=== PATIENT | male | born 1950 | race Caucasian/White ===

== ENCOUNTER 2016-10-13 10:16 | Inpatient (IN) | payer MEDICARE, OTHER ==
[2016-10-13 11:22] LABS: Hematocrit 35 % (42-52); Hemoglobin 11.2 g/dl (14.0-18.0); Mean Corpuscular HGB Conc 32 g/dl (31-36); Mean Corpuscular Hemoglobin 30 pg (27-31); Mean Corpuscular Volume 92 fL (80-94); Mean Platelet Volume 10 um3 (7.4-10.4); Red Blood Count 3.75 10^6/ul (4.0-5.4); Red Cell Distribution Width 15 % (10.5-15); White Blood Count 12.5 10^3/ul (3.5-10.8)
--- NOTE | 2016-10-13 11:27 | RAD ---
HISTORY: Shortness of breath COMPARISONS: August 31, 2015 VIEWS:1: Single frontal portable view of the chest at 10:48 AM FINDINGS: LINES AND TUBES: A right-sided chest port is noted with the tip overlying the cavoatrial junction CARDIOMEDIASTINAL SILHOUETTE: The cardiomediastinal silhouette is normal for portable technique. PLEURA: The costophrenic angles are sharp. No pleural abnormalities are noted. LUNG PARENCHYMA: The lungs are clear. ABDOMEN: The upper abdomen is clear. There is no subphrenic gas. BONES AND SOFT TISSUES: No bone or soft tissue abnormalities are noted. IMPRESSION: NO ACTIVE CARDIOPULMONARY DISEASE.
[2016-10-13 11:38] LABS: Albumin 3.8 g/dL (3.2-5.2); BUN/Creatinine Ratio 11.5 (8-20); Calcium 9.1 mg/dL (8.6-10.3); EGFR African American 14.2 (>60); EGFR Non-African American 11.1 (>60); Globulin 2.8 g/dL (2-4); Total Bilirubin 1.1 mg/dL (0.2-1.0); Total Protein 6.6 g/dL (6.4-8.9)
[2016-10-13 11:40] LABS: Troponin I 0.01 ng/mL (<0.04)
[2016-10-13] MEDS ORDERED: NS 0.9% 1000 ML* 2,000 ML IV ONE (11:58)
[2016-10-13] MEDS ORDERED: LORazepam INJ* 2 MG/ML 1 ML VIAL IV PUSH ONE (12:01)
[2016-10-13] MEDS ORDERED: Sodium Polystyrene ORAL.SOL* 15 GM/60 ML BTL PO ONE ×2 (12:24→13:58)
--- NOTE | 2016-10-13 12:43 | ADMNOTE ---
Subjective Date of Service: 10/13/16 Interval History: ADMISSION HISTORY AND PHYSICAL EXAM: Allergies Allergy/AdvReac Type Severity Reaction Status Date / Time Colchicine Allergy Mild Rash Verified 10/13/16 10:39 Penicillin G Allergy Mild Rash Verified 10/13/16 10:39 Home Medications Medication Instructions Recorded Confirmed Type Allopurinol 100 mg PO DAILY 11/19/12 10/13/16 History Metoprolol Succinate [Metoprolol 100 mg PO DAILY 11/19/12 10/13/16 History Succinate ER] Sertraline HCl 75 mg PO DAILY 11/19/12 10/13/16 History Tamsulosin HCl [Flomax] 0.4 mg PO BID 11/19/12 10/13/16 History Atorvastatin* [Lipitor 20 MG*] 20 mg PO DAILY 08/16/15 10/13/16 History Esomeprazole(NF) [Nexium(NF)] 40 mg PO BID 08/16/15 10/13/16 History Losartan TAB* [Cozaar TAB*] 100 mg PO DAILY 08/16/15 10/13/16 History Metformin ER (NF) 500 mg PO BEDTIME 08/16/15 10/13/16 History amLODIPine TAB* [Norvasc 5 mg TAB*] 5 mg PO DAILY 08/16/15 10/13/16 History traZODone TAB* [Desyrel TAB*] 50 mg PO BEDTIME PRN 08/16/15 10/13/16 History Ondansetron TAB* [Zofran Tab*] 4 mg PO Q6H PRN #30 tab 08/18/15 10/13/16 Rx Aspirin [Aspirin Adult Low Dose] 81 mg PO DAILY 08/30/15 10/13/16 History Iron-Vitamin C 65/125(Nf) 1 tab PO BEDTIME 08/30/15 10/13/16 History [Vitron-C (NF)] Multivitamins/Minerals TAB* [Thera 1 tab PO DAILY 08/30/15 10/13/16 History M Plus TAB*] Prochlorperazine TAB* [Compazine 5 mg PO BID 10/05/15 10/13/16 History Tab*] Zolpidem CR (NF) [Ambien CR (NF)] 6.25 mg PO BEDTIME 11/20/15 10/13/16 History Pregabalin CAP(*) [Lyrica CAP(*)] 50 mg PO DAILY 10/13/16 10/13/16 History Tylenol TAB* 1,000 mg PO BID 10/13/16 10/13/16 History HPI: The patient was in his usual state of health until about 4 days ago when he started getting SOB. It got progressively worse. No cough, chest pain, light- headedness.DIminished appetite. He returned from a trip to [facility] on 09/25/16. Family History: Findings - non-contributory Social History: Findings - Smoked as a young man. No alcohol abuse. retired. Lives with his who is his SDM. Past Medical History: Unchanged from Admission - Treated by Dr. Sewell for esophageal cancer with 5-FU every 3 weeks. Review of Systems - Measurements Intake and Output: Intake and Output Last 24 Hours 10/11/16 10/12/16 10/13/16 10/14/16 06:59 06:59 06:59 06:59 Weight 252 lb - Review of Systems Constitutional Symptoms: Negative: Weight Gain, Weight Loss, Weakness, Fatigue, Fever, Night Sweats, Unexplained Falls, Other Dermatology: Positive: Normal HEENT: Positive: Normal Eyes: Positive: Normal Thyroid: Positive: Normal Pulmonary: Positive: Shortness of Breath Cardiology: Positive: Swelling of Ankles Gastroenterology: Positive: Anorexia Genital - Urinary: Positive: Normal Musculoskeletal: Negative: Joint Pain, Joint Stiffness, Arthritis, Osteoporosis, Low Back Pain , Sciatica, Joint Deformities, Kyphoscoliosis, Other Endocrinology: Positive: Diabetes Mellitus Hematologic/Lymphatic: Positive: Anemia Neurology: Negative: Normal, Headache, Migraines, Change in Vision, Diplopia, Dizziness , Change in Balancing, Change in Coordination, Change in Memory, Change in Speech, Change in Sphincter Function, Change in Walking, Numbness\Paresthesiae, Unexplained Weakness, Hx of Stroke\TIA, Hx of Seizures, Other Psychiatry: Positive: Normal, Adhedonia Allergic/Immunologic: Negative: Hx Anaphylaxis, Hx Angioedema, Hx Environmental, Hx Seasonal, Athsma, Hx HIV, Immunocompromise, Swollen Glands LymphNodes, Other Objective Active Medications: Sodium Chloride (Ns 0.9% 1000 Ml*) 2,000 mls @ 1,000 mls/hr IV .PER RATE ONE Stop: 10/13/16 13:57 Last Admin: 10/13/16 12:10 Dose: 1,000 mls/hr Vital Signs 10/13/16 10/13/16 10/13/16 10:26 10:27 10:28 Temperature 97.8 F Pulse Rate 94 93 Respiratory 22 Rate Blood Pressure 121/70 121/70 (mmHg) O2 Sat by Pulse 95 92 Oximetry 10/13/16 10/13/16 10/13/16 10:30 10:31 10:33 Temperature 97.8 F Pulse Rate 95 95 Respiratory 17 18 18 Rate Blood Pressure 121/66 121/66 (mmHg) O2 Sat by Pulse 95 94 Oximetry 10/13/16 10/13/16 10/13/16 10:36 11:00 11:30 Temperature Pulse Rate 96 Respiratory 24 25 Rate Blood Pressure 101/75 120/98 (mmHg) O2 Sat by Pulse 95 93 Oximetry 10/13/16 12:10 Temperature Pulse Rate Respiratory 18 Rate Blood Pressure (mmHg) O2 Sat by Pulse Oximetry Oxygen Devices in Use Now: Nasal Cannula Appearance: Alert, partly up on ED stretcher. In fair spirits. Tachypneic. Eyes: No Scleral Icterus Ears/Nose/Mouth/Throat: Clear Oropharnyx, Mucous Membranes Moist Neck: No Thyroid Enlargement, Masses, - - JVD at 60 degrees. Respiratory: Symmetrical Chest Expansion and Respiratory Effort, Clear to Auscultation, Clear to Percussion Cardiovascular: NL Sounds; No Murmurs; No JVD, RRR, No Edema, - Extremities: No Clubbing, Cyanosis, - - Tr to 1+ edema BL Skin: No Rash or Ulcers, No Nodules or Sclerosis Neurological: Alert and Oriented x 3, NL Sensation Result Diagrams: 10/13/16 11:10 10/13/16 11:10 Assess/Plan/Problems-Billing Assessment: - Patient Problems (1) Esophageal cancer Current Visit: No Status: Acute Priority: High Comment: Received 5-FU last on 09/30/16, per Dr. Sewell. (2) Pericardial effusion Current Visit: Yes Status: Acute Code(s): I31.3 - PERICARDIAL EFFUSION ( NONINFLAMMATORY) SNOMED Code(s): 578208791 Comment: Window done 10/13/16. (3) Acute kidney injury Current Visit: Yes Status: Acute Code(s): N17.9 - ACUTE KIDNEY FAILURE, UNSPECIFIED SNOMED Code(s): 83759514 Comment: Note prior R nephrectomy. Received 30 gm Kayexalate in ED. Dr. Longo aware of pt. Urine sodium, creat and 24 hr urine creat ordered. (4) Diabetes Current Visit: Yes Status: Acute Code(s): E11.9 - TYPE 2 DIABETES MELLITUS WITHOUT COMPLICATIONS SNOMED Code(s): 04370572 Comment: Hold metformin.
[2016-10-13] MEDS ORDERED: Heparin DRIP 25,000 UNITS(*) 25,000 UNITS/500 ML BAG IV SCH (13:00)
[2016-10-13] MEDS ORDERED: Heparin VIAL(*) 5000 UNITS/ML VIAL (FIVE THOUSAND) IV SCH (13:00)
[2016-10-13 13:07] LABS: Urine Bilirubin Negative (Negative); Urine Glucose Negative (Negative); Urine Nitrite Negative (Negative)
--- NOTE | 2016-10-13 13:42 | RAD ---
HISTORY: Renal failure, history of right renal resection COMPARISONS: CT dated January 11, 2017 TECHNIQUE: Multiple transverse and longitudinal ultrasound images were obtained of the right kidney and bladder using grayscale and color Doppler imaging. FINDINGS: RIGHT KIDNEY: The right kidney is not visualized on the submitted images, consistent with the history of resection LEFT KIDNEY: The left kidney is normal in shape, size, contour, and echogenicity. There is no hydronephrosis or nephrolithiasis. The left kidney measures 14.8 x 6.7 x 7.7 cm. BLADDER: The bladder is collapsed around a Gupta catheter. AORTA AND IVC: No images are submitted of the vasculature. RETROPERITONEUM: Unremarkable. OTHER: There is a small amount of ascites IMPRESSION: 1. STATUS POST RIGHT RENAL RESECTION. 2. NO LEFT HYDRONEPHROSIS OR NEPHROLITHIASIS. 3. THE BLADDER IS COLLAPSED AROUND A GUPTA CATHETER. 4. SMALL AMOUNT OF ASCITES.
--- NOTE | 2016-10-13 13:52 | RAD ---
CLINICAL HISTORY: Renal failure, history of kidney cancer COMPARISON: Ultrasound dated October 13, 2016, CT dated May 14, 2016 TECHNIQUE: Multiple contiguous axial CT scans were obtained of the abdomen and pelvis, without intravenous contrast enhancement. Coronal and sagittal multiplanar reformations are submitted for review. Oral contrast was not administered. FINDINGS: The study is limited by the lack of intravenous contrast. This limits evaluation of the solid organs and vasculature. LUNG BASES: There is a large pericardial effusion. There are moderate bilateral pleural effusions. LIVER: The liver is homogeneously enlarged measuring 22 cm in long axis. BILE DUCTS: There is no intrahepatic or extrahepatic biliary dilatation. GALLBLADDER: The gallbladder is normal, without pericholecystic inflammatory change. PANCREAS: The pancreas is normal, without mass or ductal dilatation. SPLEEN: Normal in size and appearance. UPPER GI TRACT: Evaluation of the gastrointestinal tract is limited by incomplete gastric distention. The upper GI tract is unremarkable. SMALL BOWEL AND MESENTERY: The small bowel is normal in contour, course, and caliber. There is no obstruction or dilatation. COLON: There are scattered diverticula of the sigmoid colon. There is no pericolonic inflammatory change. ADRENALS: Normal bilaterally. KIDNEYS: The patient is status post right defect. There are punctate nonobstructing left renal calyceal stones. There is no hydronephrosis. BLADDER: The bladder is collapsed around a Rodriguez catheter. PELVIC ORGANS: The prostate gland is normal. The seminal vesicles are symmetric. AORTA: There is calcific atherosclerotic disease of the abdominal aorta and its branches, without aneurysmal dilatation IVC: Unremarkable LYMPH NODES: There is no lymphadenopathy by size criteria. ABDOMINAL WALL: There is a large right lateral flank hernia containing portions of small bowel and large bowel without obstruction. This is similar to the previous examination. A hernia repair mesh is noted. BONES AND SOFT TISSUES: There are mild diffuse degenerative changes. OTHER: There is a small to moderate amount of ascites predominantly in the pelvis and right hemiabdomen IMPRESSION: 1. STATUS POST RIGHT NEPHRECTOMY. 2. HEPATOMEGALY. 3. ASCITES. 4. LARGE PERICARDIAL EFFUSION. 5. BILATERAL PLEURAL EFFUSIONS. 6. PUNCTATE NONOBSTRUCTING LEFT RENAL CALYCEAL STONES WITHOUT HYDRONEPHROSIS. 7. SCATTERED DIVERTICULA OF THE COLON
[2016-10-13] MEDS ORDERED: Furosemide IV* 10 MG/ML 10 ML VIAL (100 MG) IV ONE (13:59)
--- NOTE | 2016-10-13 14:47 | RAD ---
HISTORY: Shortness of breath, hypoxemia COMPARISON: None relevant TECHNIQUE: Pulmonary ventilation/perfusion scintigraphy was performed with dynamic cine images and multiple planar images. DOSE: Ventilation: Xenon-133 11.65 millicuries, administered at 1:40 PM on October 13, 2016 Perfusion: Technetium 99m microaggregated albumin 6.5 millicuries, administered at 2:00 PM on October 13, 2016 FINDINGS: Ventilation: There is no appreciable ventilation defect. Perfusion: There is artifact from central line access. There is no appreciable segmental or larger perfusion defect. IMPRESSION: VERY LOW PROBABILITY V/Q SCAN
--- NOTE | 2016-10-13 15:59 | HP ---
H&P (Free Text) History and Physical: Surgery H & P Asked by Dr. Sprague to evaluate a pt. for possible pericardial window. Mr. Lowe is a 66 y.o. male whose reports that he began to be noticeably SOB 3 days ago. Before that he was in his usual health. They had returned from a 3 wk. trip to [facility] and had a round of chemo which he has been receiving for esophageal cancer. He has not had any XRT. After he couldn't walk 10 feet and nearly passed out, they came to the ER. Here he had a CT showing fluid around the heart, and then cardiology did echo showing tamponade. PMHx: HTN Meds: nexium, lipitor, asa, lyrica, allopurinol, metoprolol, cozaar, compazine , ambien, zofran, flomax, sertraline, trazadone, norvasc ALL: PCN, colchicine, SH: former tobacco smoker 1/2 ppd, rare EtOH, neg. IVDA PE: general: ill-appearing male in respiratory distress Vital Signs 10/13/16 10/13/16 10/13/16 10:26 10:27 10:28 Temperature 97.8 F Pulse Rate 94 93 Respiratory 22 Rate Blood Pressure 121/70 121/70 (mmHg) O2 Sat by Pulse 95 92 Oximetry 10/13/16 10/13/16 10/13/16 10:30 10:31 10:33 Temperature 97.8 F Pulse Rate 95 95 Respiratory 17 18 18 Rate Blood Pressure 121/66 121/66 (mmHg) O2 Sat by Pulse 95 94 Oximetry 10/13/16 10/13/16 10/13/16 10:36 11:00 11:30 Temperature Pulse Rate 96 Respiratory 24 25 Rate Blood Pressure 101/75 120/98 (mmHg) O2 Sat by Pulse 95 93 Oximetry 10/13/16 10/13/16 10/13/16 12:00 12:10 12:30 Temperature Pulse Rate 80 94 Respiratory 27 18 20 Rate Blood Pressure 130/77 126/79 (mmHg) O2 Sat by Pulse 94 95 Oximetry 10/13/16 10/13/16 10/13/16 13:00 13:02 14:36 Temperature Pulse Rate 110 100 Respiratory 15 Rate Blood Pressure 144/85 (mmHg) O2 Sat by Pulse 95 96 Oximetry 0710/13/16 10/13/16 15:00 15:27 15:41 Temperature Pulse Rate 97 94 104 Respiratory 24 25 18 Rate Blood Pressure 115/74 133/99 (mmHg) O2 Sat by Pulse 96 96 Oximetry HEENT: anicteric sclerae, dry oral mucosa, neg. cervical adenopathy lungs: clear heart: somewhat muffled sounds abd: distended, good BS, non-tender ext: trace edema Intake & Output 10/13/16 10/13/16 10/13/16 06:59 14:59 22:59 Weight 252 lb Other: Date of Last Bowel T Movement # Bowel Movements 1 Estimated Stool Amount Medium Laboratory Results - last 24 hr 10/13/16 10/13/16 10/13/16 11:10 11:10 11:10 WBC 12.5 H RBC 3.75 L Hgb 11.2 L Hct 35 L MCV 92 MCH 30 MCHC 32 RDW 15 Plt Count 217 MPV 10 Neut % (Auto) 78.8 Lymph % (Auto) 9.7 L Ogle % (Auto) 10.3 H Eos % (Auto) 0.7 Baso % (Auto) 0.5 Absolute Neuts (auto) 9.9 H Absolute Lymphs (auto) 1.2 Absolute Monos (auto) 1.3 H Absolute Eos (auto) 0.1 Absolute Basos (auto) 0.1 Absolute Nucleated RBC 0.01 Nucleated RBC % 0.1 INR (Anticoag Therapy) 1.14 H APTT 29.3 D-Dimer, Quantitative 958 H Sodium 131 L Potassium 6.0 H Chloride 99 L Carbon Dioxide 20 L Anion Gap 12 H BUN 60 H Creatinine 5.21 H Est GFR ( Amer) 14.2 Est GFR (Non-Af Amer) 11.1 BUN/Creatinine Ratio 11.5 Glucose 144 H Lactic Acid Calcium 9.1 Total Bilirubin 1.10 H AST 18 ALT 20 Alkaline Phosphatase 88 Troponin I 0.01 B-Natriuretic Peptide Total Protein 6.6 Albumin 3.8 Globulin 2.8 Albumin/Globulin Ratio 1.4 Urine Color Urine Appearance Urine pH Ur Specific Drumright Urine Protein Urine Ketones Urine Blood Urine Nitrate Urine Bilirubin Urine Urobilinogen Ur Leukocyte Esterase Urine Glucose 10/13/16 10/13/16 10/13/16 11:10 11:10 12:25 WBC RBC Hgb Hct MCV MCH MCHC RDW Plt Count MPV Neut % (Auto) Lymph % (Auto) Ogle % (Auto) Eos % (Auto) Baso % (Auto) Absolute Neuts (auto) Absolute Lymphs (auto) Absolute Monos (auto) Absolute Eos (auto) Absolute Basos (auto) Absolute Nucleated RBC Nucleated RBC % INR (Anticoag Therapy) APTT D-Dimer, Quantitative Sodium Potassium Chloride Carbon Dioxide Anion Gap BUN Creatinine Est GFR ( Amer) Est GFR (Non-Af Amer) BUN/Creatinine Ratio Glucose Lactic Acid 2.3 H* Calcium Total Bilirubin AST ALT Alkaline Phosphatase Troponin I B-Natriuretic Peptide 113 H Total Protein Albumin Globulin Albumin/Globulin Ratio Urine Color Emy Urine Appearance Cloudy Urine pH 5.0 Ur Specific Drumright 1.024 Urine Protein 2+(100 mg/dl) H Urine Ketones Negative Urine Blood Negative Urine Nitrate Negative Urine Bilirubin Negative Urine Urobilinogen Negative Ur Leukocyte Esterase Trace H Urine Glucose Negative A/P: Pericardial tamponade due to pericardial effusion; will proceed to OR for pericardial window. I have explained to the pt. and the nature of surgery , its risks, benefits, and alternatives. They understand and agree to proceed. Na
[2016-10-13] MEDS ORDERED: Clindamycin 900 MG IVPREMIX(* 900 MG/50 ML SDV IV ONE (16:06)
[2016-10-13] MEDS ORDERED: Midazolam* 1 MG/ML 5 ML VIAL (5 MG) ONE (16:13)
[2016-10-13] MEDS ORDERED: Dexamethasone IV* 4 MG/ML 1 ML (4 MG) ONE (16:13)
[2016-10-13] MEDS ORDERED: Famotidine IV* 10 MG/ML 2 ML (20 mg) ONE (16:13)
[2016-10-13] MEDS ORDERED: fentaNYL* 50 MCG/ML 5 ML VIAL (250 MCG VIAL) ONE (16:13)
[2016-10-13] MEDS ORDERED: Propofol* 10 MG/ML 20 ML BTL IV PUSH ONE (16:13)
[2016-10-13] MEDS ORDERED: Ondansetron INJ* 2 MG/ML VIAL ONE (16:13)
[2016-10-13] MEDS ORDERED: EPHEDrine (Pressors)* 50 MG/ML VIAL ONE (16:51)
[2016-10-13] MEDS ORDERED: Bupivacaine 0.5% W/EPI SDV* 10 ML VIAL INJ ONE (16:52)
[2016-10-13] MEDS ORDERED: Lidocaine 1% INJ* 10 MG/ML 30 ML SDV ONE (16:52)
--- NOTE | 2016-10-13 19:35 | RAD ---
HISTORY: Status post pericardial window COMPARISONS: October 13, 2016 VIEWS:1: Single frontal portable view of the chest at 7:20 PM FINDINGS: LINES AND TUBES: A right-sided chest port is noted with the tip overlying the cavoatrial junction CARDIOMEDIASTINAL SILHOUETTE: The cardiomediastinal silhouette is normal for portable technique. PLEURA: There is moderate right-sided pneumothorax LUNG PARENCHYMA: The lungs are clear. ABDOMEN: The upper abdomen is clear. There is no subphrenic gas. BONES AND SOFT TISSUES: No bone or soft tissue abnormalities are noted. IMPRESSION: MODERATE RIGHT-SIDED PNEUMOTHORAX PRELIMINARY FINDINGS WERE DISCUSSED WITH PATRICIO ADAMSON AT APPROXIMATELY 7:31 PM ON OCTOBER 13, 2016.
--- NOTE | 2016-10-13 20:35 | PN ---
Progress Note - Progress Note Date of Service: 10/13/16 Note: Paged to the bedside for increase WOB after attempting jello. Patient came up from ED stridulent. On exam now with b/l expiratory wheeze diffusely and remains with expiratory stridor. Has needed inhalers in the past with URI illness's. Will attempt albuterol and racemic epi for now. Has a mod right size pneumo that Dr. Quintero is following and planning to repeat xray this evening. If no improvement with respiratory status with neb's will repeat xray sooner and evaluate from there. Will avoid hiflow in setting of his pneumo.
[2016-10-13 20:37] LABS: BUN/Creatinine Ratio 12.1 (8-20); Calcium 8.8 mg/dL (8.6-10.3); EGFR African American 13.7 (>60); EGFR Non-African American 10.7 (>60); Potassium 5.8 mmol/L (3.5-5.0)
[2016-10-13 20:58] LABS: Renal Sodium Excretion 0.27 %
[2016-10-13] MEDS: Albuterol 2.5 MG/3 ML NEB.SOL* (0.083%) INH PRN (21:20)
[2016-10-13] MEDS: EPINEPHrine,Rac 2.25% NEB.SOL* 0.5 ML INH PRN (21:22)
--- NOTE | 2016-10-13 22:57 | CONS ---
CC: Dr. Ady Sewell; Dr. Longo * CARDIOLOGY CONSULTATION for large pericardial effusion and limited echo to evaluate for tamponade: DATE OF CONSULTATION: 10/13/16 REFERRING PHYSICIAN: Dr. Andrew Morris. HISTORY OF PRESENT ILLNESS: I was kindly asked to see this patient by Dr. Morris for Cardiology consultation urgently for a large pericardial effusion. The patient is seen in the ER and is accompanied by his who is a retired critical care nurse and nursing support worker at our hospital. The patient has had 3 days of shortness of breath with a little bit of chest pressure and near syncope last night. His insisted that he come to the emergency room today and here he had a CAT scan of his chest, which showed a very large pericardial effusion. I have just done an urgent limited echo on the patient and it showed a very large pericardial effusion greater than 3 cm circumferential with clear tamponade with RV and LV compression, IVC dilatation on limited imaging. The patient is tachypneic and cannot lie flat with clear orthopnea. He is also pale. PAST MEDICAL HISTORY: Includes right kidney cancer, status post resection in 2006. He has had esophageal cancer diagnosed one year ago reportedly stage IV and he is on chemotherapy for that, diabetes, hypertension, BPH, depression, hyperlipidemia, GERD and gout. OUTPATIENT MEDICATIONS: 1. Flomax 0.4 mg p.o. b.i.d. 2. Allopurinol 100 mg p.o. daily. 3. Sertraline 75 mg once a day. 4. Toprol-XL 100 mg once a day. 5. Nexium 40 mg p.o. b.i.d. 7. Trazodone p.r.n. 8. Lipitor 20 mg once a day. 7. Norvasc 5 mg once a day. 6. Cozaar 100 mg once a day. 7. Metformin 500 mg p.o. q.h.s. 8. Aspirin 81 mg once a day. ALLERGIES TO MEDICATIONS: PENICILLIN, AMPICILLIN, as well as COLCHICINE, all of which cause him rash. He denies shrimp or seafood allergy. FAMILY HISTORY: His grandmother had a history of cardiac disease. His brother had a history of ID with CABG and multiple PCIs and at the age of 58. There is family history of diabetes and cancer. No family history of stroke. SOCIAL HISTORY: He does not smoke cigarettes now. He rarely drinks alcohol. He does not use illicit drugs. He quit smoking cigarettes after having smoked half a pack a day for 10 years in 1996. He has been three times, has being twice. He is to his current for 19 years. 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 He is a college graduate. In the past, he has done exercise with walking two 100-pound dogs for 1-1/2 miles, but he has not done any exercise for several weeks. REVIEW OF SYSTEMS: He denies a personal history of stroke, vomiting up blood, coughing up blood, bright red blood per rectum or bleeding stomach ulcers. He has a history of renal calculi followed by Dr. Macario. He denies asthma, emphysema, pneumonia, tuberculosis. He has sleep apnea, on CPAP. He does not use home oxygen. He has type 2 diabetes. He has a history of hypertension. He denies prior ID, congestive heart failure, cardiac surgery, cardiac murmurs, palpitations. He has fainted in the past at the time of esophageal cancer diagnosis. He states he almost fainted last night when he stood up. He has a history of depression on medical therapy. He denies lupus, psoriasis, seizures , Parkinson's disease, myasthenia gravis, thyroid disorders, liver disorders. He does not have a history of prior kidney disease, but today is found to have renal failure. He denies pulmonary emboli, deep venous thrombosis, peripheral arterial disease, claudication symptoms and peripheral edema. He has had prior significant GERD. All other review of systems are negative except as described above. PHYSICAL EXAM: Height 6 feet 4 inches, weight 252 pounds, temperature is 97.8 degrees Fahrenheit, pulse is 100, blood pressure 115/74, O2 saturation 96%. On general exam, he appears to be in mild distress and becomes quite tachypneic when I lie him flat. HEENT shows the cranium is normocephalic and atraumatic. He is pale. He has dry mucosal membranes. Neck veins reveal JVP of 12 cm. No carotid bruits. Visible skin is warm and perfused. Affect is appropriate. He appears oriented. There was significant kyphoscoliosis on back exam. Lungs are clear to auscultation. No wheezes and no rales. Cardiac Exam: S1, S2. Regular rate. No significant murmurs, rubs or gallops. PMI is nondisplaced. Abdomen: Soft, nondistended, appears benign. Extremities: With no more than trivial peripheral edema. Pulses appear grossly intact. DIAGNOSTIC STUDIES/LAB DATA: A 12-lead EKG is reviewed at 10:30, which shows sinus rhythm at 93 beats per minute with low voltage and this voltage has decreased from prior EKG. Limited echocardiogram done by myself today shows a very large pericardial effusion with clear tamponade including RV and LV compression and IVC dilatation. Pericardial effusion measures greater than 3 cm and is circumferential. White blood cell count 10.5, hematocrit 35, platelet count 217, INR 1.14, D-dimer 958. Sodium 131, potassium 6.0, chloride 99, bicarbonate 20, BUN 60, creatinine 5.21, and his creatinine was 1.40 on . Very low probability V/Q scan today. IMPRESSION: Mr. Lowe is a 66-year-old gentleman with two separate primary cancers including renal cell in 2006 and now stage IV esophageal cancer on chemotherapy with shortness of breath for three days, near syncope, evidence of organ hypoperfusion, and very large pericardial effusion with clear tamponade physiology. I feel the patient will benefit from urgent pericardial window. I have discussed the case with Dr. Quintero of Surgery, who kindly agrees to evaluate the patient urgently for pericardial window creation. I have also discussed the case with the patient's attending physician, Dr. Morris. RECOMMENDATIONS: 1. Urgent pericardial window evaluation for very large pericardial effusion with tamponade physiology by Dr. Quintero pending. I would recommend sending fluid for cytology and other evaluation as appropriate as main concern would be for malignant etiology of this very large pericardial effusion with tamponade physiology. 2. Further management as per the oncologist, hospitalist medicine, and renal service, as well as surgery. The above has been discussed in detail with the patient and his including I showed them limited echo imaging of the patient's very large pericardial effusion with tamponade physiology. They are in agreement with pericardial window evaluation by Dr. Quintero. Many thanks for this kind cardiovascular consultation opportunity. Please do not hesitate to contact me if you have any questions or concerns regarding the patient's cardiovascular consultative care. [id number]/[facility] #: [id number] [facility] CENTERLeighton
--- NOTE | 2016-10-14 00:21 | PN ---
Progress Note - Progress Note Date of Service: 10/14/16 Note: Procedure Note Under sterile conditions, using 1% Lidocaine, a right 8F chest tube was placed in the 2nd ICS mid-clavicular line. Pt. tolerated procedure well, port CXR pnd. CLFoster
[2016-10-14] MEDS: oxyCODONE/Acetamin 5/325 MG* TAB PO PRN ×5 (00:39→22:12)
[2016-10-14] MEDS ORDERED: Dextrose 50% Syringe 50 ML* 25 GM/50 ML SYRINGE IV PUSH PRN (01:41)
[2016-10-14] MEDS: Heparin VIAL(*) 5000 UNITS/ML VIAL (FIVE THOUSAND) SUBCUT SCH ×3 (05:21→22:12)
[2016-10-14 05:55] LABS: Hematocrit 30 % (42-52); Hemoglobin 9.9 g/dl (14.0-18.0); Mean Corpuscular HGB Conc 33 g/dl (31-36); Mean Corpuscular Hemoglobin 30 pg (27-31); Mean Corpuscular Volume 92 fL (80-94); Mean Platelet Volume 10 um3 (7.4-10.4); Red Blood Count 3.31 10^6/ul (4.0-5.4); Red Cell Distribution Width 15 % (10.5-15); White Blood Count 12.1 10^3/ul (3.5-10.8)
[2016-10-14 06:09] LABS: BUN/Creatinine Ratio 14.8 (8-20); Calcium 8.8 mg/dL (8.6-10.3); EGFR African American 17.9 (>60); EGFR Non-African American 13.9 (>60); Potassium 5.1 mmol/L (3.5-5.0)
--- NOTE | 2016-10-14 07:38 | RAD ---
HISTORY: Pneumothorax follow-up COMPARISONS: October 13, 2016 at 7:20 PM VIEWS:1: Single frontal portable view of the chest at 11:30 PM FINDINGS: LINES AND TUBES: A right-sided chest port is noted with the tip overlying the cavoatrial junction. CARDIOMEDIASTINAL SILHOUETTE: The cardiomediastinal silhouette is stable. PLEURA: Again noted is a right-sided pneumothorax. This is increased in size compared to the previous examination LUNG PARENCHYMA: The lungs are clear. ABDOMEN: The upper abdomen is clear. There is no subphrenic gas. BONES AND SOFT TISSUES: No bone or soft tissue abnormalities are noted. IMPRESSION: INTERVAL INCREASE IN SIZE OF THE RIGHT-SIDED PNEUMOTHORAX
--- NOTE | 2016-10-14 07:42 | RAD ---
HISTORY: Status post chest tube placement COMPARISONS: October 13, 2016 11:30 PM VIEWS:1: Single frontal portable view of the chest at 12:35 AM FINDINGS: LINES AND TUBES: A right-sided chest port is noted with the tip overlying the superior vena cava. There has been interval placement of a right-sided chest tube. CARDIOMEDIASTINAL SILHOUETTE: The cardiomediastinal silhouette is stable. PLEURA: There is no appreciable residual pneumothorax on the right. There is a small left pleural effusion. LUNG PARENCHYMA: There is prominence of the central pulmonary vasculature ABDOMEN: The upper abdomen is clear. There is no subphrenic gas. BONES AND SOFT TISSUES: No bone or soft tissue abnormalities are noted. IMPRESSION: 1. LINES AND TUBES ABOVE. 2. NO RESIDUAL PNEUMOTHORAX NOTED ON THE RIGHT. 3. SMALL LEFT PLEURAL EFFUSION. 4. PULMONARY VASCULAR CONGESTION
--- NOTE | 2016-10-14 08:23 | PN ---
Progress Note - Progress Note Date of Service: 10/14/16 Note: Surgery Mr. Lowe denies complaints, is getting an echo now. I did not examine. By report he had an episode of choking on jello last night, but is hungry this morning. Vital Signs 10/13/16 10/13/16 10/13/16 10:26 10:27 10:28 Temperature 97.8 F Pulse Rate 94 93 Respiratory 22 Rate Blood Pressure 121/70 121/70 (mmHg) O2 Sat by Pulse 95 92 Oximetry 10/13/16 10/13/16 10/13/16 10:30 10:31 10:33 Temperature 97.8 F Pulse Rate 95 95 Respiratory 17 18 18 Rate Blood Pressure 121/66 121/66 (mmHg) O2 Sat by Pulse 95 94 Oximetry 10/13/16 10/13/16 10/13/16 10:36 11:00 11:30 Temperature Pulse Rate 96 Respiratory 24 25 Rate Blood Pressure 101/75 120/98 (mmHg) O2 Sat by Pulse 95 93 Oximetry 10/13/16 10/13/16 10/13/16 12:00 12:10 12:30 Temperature Pulse Rate 80 94 Respiratory 27 18 20 Rate Blood Pressure 130/77 126/79 (mmHg) O2 Sat by Pulse 94 95 Oximetry 10/13/16 10/13/16 10/13/16 13:00 13:02 14:36 Temperature Pulse Rate 110 100 Respiratory 15 Rate Blood Pressure 144/85 (mmHg) O2 Sat by Pulse 95 96 Oximetry 10/13/16 10/13/16 10/13/16 15:00 15:27 15:41 Temperature Pulse Rate 97 94 104 Respiratory 24 25 18 Rate Blood Pressure 115/74 133/99 (mmHg) O2 Sat by Pulse 96 96 Oximetry 10/13/16 10/13/16 10/13/16 18:06 18:10 18:15 Temperature 97.2 F Pulse Rate 84 84 83 Respiratory 28 28 28 Rate Blood Pressure 164/90 170/91 147/63 (mmHg) O2 Sat by Pulse 96 96 96 Oximetry 10/13/16 10/13/16 10/13/16 18:30 18:45 19:00 Temperature 98.8 F Pulse Rate 84 83 88 Respiratory 24 22 24 Rate Blood Pressure 147/84 145/72 114/74 (mmHg) O2 Sat by Pulse 98 99 98 Oximetry 10/13/16 10/13/16 10/13/16 19:15 19:45 20:31 Temperature 98.4 F Pulse Rate 84 87 Respiratory 26 24 22 Rate Blood Pressure 165/98 174/73 (mmHg) O2 Sat by Pulse 97 95 Oximetry 10/13/16 10/13/16 10/13/16 21:00 21:24 21:26 Temperature Pulse Rate 89 Respiratory 22 22 Rate Blood Pressure (mmHg) O2 Sat by Pulse 95 95 Oximetry 10/13/16 10/13/16 10/13/16 22:00 22:15 22:30 Temperature Pulse Rate 93 90 92 Respiratory 20 20 20 Rate Blood Pressure 147/60 147/60 135/66 (mmHg) O2 Sat by Pulse 91 95 96 Oximetry 10/13/16 10/13/16 10/13/16 22:45 23:00 23:15 Temperature Pulse Rate 88 89 87 Respiratory 20 20 19 Rate Blood Pressure 143/64 141/58 145/58 (mmHg) O2 Sat by Pulse 95 92 90 Oximetry 10/13/16 10/13/16 10/13/16 23:30 23:45 23:53 Temperature 98.7 F Pulse Rate 88 82 Respiratory 23 23 Rate Blood Pressure 161/64 134/64 (mmHg) O2 Sat by Pulse 94 95 Oximetry 10/14/16 10/14/16 10/14/16 00:00 00:01 00:15 Temperature Pulse Rate 81 82 82 Respiratory 22 25 20 Rate Blood Pressure 142/62 137/61 (mmHg) O2 Sat by Pulse 95 95 95 Oximetry 10/14/16 10/14/16 10/14/16 00:30 00:39 00:45 Temperature Pulse Rate 78 82 Respiratory 17 18 22 Rate Blood Pressure 137/65 151/78 (mmHg) O2 Sat by Pulse 98 97 Oximetry 10/14/16 10/14/16 10/14/16 01:00 01:15 01:30 Temperature Pulse Rate 79 81 79 Respiratory 18 19 18 Rate Blood Pressure 146/68 131/63 133/59 (mmHg) O2 Sat by Pulse 94 94 94 Oximetry 10/14/16 10/14/16 10/14/16 01:45 02:00 02:15 Temperature Pulse Rate 79 79 79 Respiratory 20 18 18 Rate Blood Pressure 140/66 135/70 133/58 (mmHg) O2 Sat by Pulse 94 95 95 Oximetry 10/14/16 10/14/16 10/14/16 02:30 02:45 03:00 Temperature Pulse Rate 77 77 75 Respiratory 19 16 19 Rate Blood Pressure 143/61 141/63 146/64 (mmHg) O2 Sat by Pulse 95 95 96 Oximetry 10/14/16 10/14/16 10/14/16 03:15 03:30 03:41 Temperature 98.7 F Pulse Rate 76 75 Respiratory 19 16 Rate Blood Pressure 139/58 150/54 (mmHg) O2 Sat by Pulse 93 91 Oximetry 10/14/16 10/14/16 10/14/16 03:45 03:57 04:00 Temperature Pulse Rate 75 73 Respiratory 15 18 16 Rate Blood Pressure 136/57 (mmHg) O2 Sat by Pulse 92 92 Oximetry 10/14/16 10/14/16 10/14/16 04:15 04:30 04:45 Temperature Pulse Rate 71 70 69 Respiratory 14 15 14 Rate Blood Pressure 125/63 124/61 120/55 (mmHg) O2 Sat by Pulse 93 92 94 Oximetry 10/14/16 10/14/16 10/14/16 05:00 05:18 05:21 Temperature Pulse Rate 67 80 Respiratory 16 15 15 Rate Blood Pressure 122/55 143/69 (mmHg) O2 Sat by Pulse 94 95 Oximetry 10/14/16 10/14/16 10/14/16 05:30 05:32 05:45 Temperature Pulse Rate 77 80 72 Respiratory 19 21 14 Rate Blood Pressure 134/81 139/68 137/65 (mmHg) O2 Sat by Pulse 94 96 95 Oximetry 10/14/16 10/14/16 10/14/16 06:00 06:15 06:30 Temperature Pulse Rate 67 67 67 Respiratory 16 14 14 Rate Blood Pressure 132/62 130/59 126/61 (mmHg) O2 Sat by Pulse 95 95 96 Oximetry 10/14/16 10/14/16 10/14/16 06:45 07:00 07:15 Temperature Pulse Rate 69 66 64 Respiratory 13 13 12 Rate Blood Pressure 128/64 129/57 123/57 (mmHg) O2 Sat by Pulse 95 96 96 Oximetry 10/14/16 10/14/16 10/14/16 07:25 07:30 07:39 Temperature 98.4 F Pulse Rate 64 63 Respiratory 14 19 Rate Blood Pressure 128/60 (mmHg) O2 Sat by Pulse 96 96 Oximetry 10/14/16 07:45 Temperature Pulse Rate 63 Respiratory 26 Rate Blood Pressure 124/66 (mmHg) O2 Sat by Pulse 95 Oximetry ERNESTINE drainage is serosanguinous (was initially dark blood) dressings intact. No leak via heimlich some fluid in tubing. Intake & Output 10/13/16 10/14/16 10/14/16 22:59 06:59 14:59 Intake Total 607 648 Output Total 415 930 Balance 192 -282 Weight 266 lb 5.094 oz 262 lb 12.656 oz Intake: IV Fluids 607 528 CLINDAMYCIN 900 MG 50 LR 57 528 NS 500 Oral 120 Output: ERNESTINE #1 115 30 Rodriguez 300 900 Other: Date of Last Bowel T Movement # Bowel Movements 1 0 Estimated Stool Amount Medium Laboratory Results - last 24 hr 10/13/16 10/13/16 10/13/16 11:10 11:10 11:10 WBC 12.5 H RBC 3.75 L Hgb 11.2 L Hct 35 L MCV 92 MCH 30 MCHC 32 RDW 15 Plt Count 217 MPV 10 Neut % (Auto) 78.8 Lymph % (Auto) 9.7 L [place] % (Auto) 10.3 H Eos % (Auto) 0.7 Baso % (Auto) 0.5 Absolute Neuts (auto) 9.9 H Absolute Lymphs (auto) 1.2 Absolute Monos (auto) 1.3 H Absolute Eos (auto) 0.1 Absolute Basos (auto) 0.1 Absolute Nucleated RBC 0.01 Nucleated RBC % 0.1 INR (Anticoag Therapy) 1.14 H APTT 29.3 D-Dimer, Quantitative 958 H Sodium 131 L Potassium 6.0 H Chloride 99 L Carbon Dioxide 20 L Anion Gap 12 H BUN 60 H Creatinine 5.21 H Est GFR ( Amer) 14.2 Est GFR (Non-Af Amer) 11.1 BUN/Creatinine Ratio 11.5 Glucose 144 H POC Glucose (mg/dL) Lactic Acid Calcium 9.1 Total Bilirubin 1.10 H AST 18 ALT 20 Alkaline Phosphatase 88 Troponin I 0.01 B-Natriuretic Peptide Total Protein 6.6 Albumin 3.8 Globulin 2.8 Albumin/Globulin Ratio 1.4 Urine Color Urine Appearance Urine pH Ur Specific [place] Urine Protein Urine Ketones Urine Blood Urine Nitrate Urine Bilirubin Urine Urobilinogen Ur Leukocyte Esterase Ur Random Creatinine Ur Random Sodium Renal Sodium Excretion Urine Potassium Urine Glucose 10/13/16 10/13/16 10/13/16 11:10 11:10 12:25 WBC RBC Hgb Hct MCV MCH MCHC RDW Plt Count MPV Neut % (Auto) Lymph % (Auto) [place] % (Auto) Eos % (Auto) Baso % (Auto) Absolute Neuts (auto) Absolute Lymphs (auto) Absolute Monos (auto) Absolute Eos (auto) Absolute Basos (auto) Absolute Nucleated RBC Nucleated RBC % INR (Anticoag Therapy) APTT D-Dimer, Quantitative Sodium Potassium Chloride Carbon Dioxide Anion Gap BUN Creatinine Est GFR ( Amer) Est GFR (Non-Af Amer) BUN/Creatinine Ratio Glucose POC Glucose (mg/dL) Lactic Acid 2.3 H* Calcium Total Bilirubin AST ALT Alkaline Phosphatase Troponin I B-Natriuretic Peptide 113 H Total Protein Albumin Globulin Albumin/Globulin Ratio Urine Color Emy Urine Appearance Cloudy Urine pH 5.0 Ur Specific [place] 1.024 Urine Protein 2+(100 mg/dl) H Urine Ketones Negative Urine Blood Negative Urine Nitrate Negative Urine Bilirubin Negative Urine Urobilinogen Negative Ur Leukocyte Esterase Trace H Ur Random Creatinine Ur Random Sodium Renal Sodium Excretion Urine Potassium Urine Glucose Negative 10/13/16 10/13/16 10/13/16 20:17 20:20 20:20 WBC RBC Hgb Hct MCV MCH MCHC RDW Plt Count MPV Neut % (Auto) Lymph % (Auto) [place] % (Auto) Eos % (Auto) Baso % (Auto) Absolute Neuts (auto) Absolute Lymphs (auto) Absolute Monos (auto) Absolute Eos (auto) Absolute Basos (auto) Absolute Nucleated RBC Nucleated RBC % INR (Anticoag Therapy) APTT D-Dimer, Quantitative Sodium 132 L 131 L Potassium 5.8 H Chloride 99 L Carbon Dioxide 20 L Anion Gap 13 H BUN 65 H Creatinine 5.38 H 5.14 H Est GFR ( Amer) 13.7 Est GFR (Non-Af Amer) 10.7 BUN/Creatinine Ratio 12.1 Glucose 162 H POC Glucose (mg/dL) Lactic Acid Calcium 8.8 Total Bilirubin AST ALT Alkaline Phosphatase Troponin I B-Natriuretic Peptide Total Protein Albumin Globulin Albumin/Globulin Ratio Urine Color Urine Appearance Urine pH Ur Specific [place] Urine Protein Urine Ketones Urine Blood Urine Nitrate Urine Bilirubin Urine Urobilinogen Ur Leukocyte Esterase Ur Random Creatinine 252.90 Ur Random Sodium 18 Renal Sodium Excretion 0.27 Urine Potassium 83.1 Urine Glucose 10/14/16 10/14/16 10/14/16 00:30 05:40 05:40 WBC 12.1 H RBC 3.31 L Hgb 9.9 L Hct 30 L MCV 92 MCH 30 MCHC 33 RDW 15 Plt Count 177 MPV 10 Neut % (Auto) 87.3 H Lymph % (Auto) 3.8 L [place] % (Auto) 8.8 Eos % (Auto) 0 Baso % (Auto) 0.1 Absolute Neuts (auto) 10.6 H Absolute Lymphs (auto) 0.5 L Absolute Monos (auto) 1.1 H Absolute Eos (auto) 0 Absolute Basos (auto) 0 Absolute Nucleated RBC 0 Nucleated RBC % 0 INR (Anticoag Therapy) APTT D-Dimer, Quantitative Sodium 134 Potassium 5.1 H Chloride 103 Carbon Dioxide 22 Anion Gap 9 BUN 63 H Creatinine 4.27 H Est GFR ( Amer) 17.9 Est GFR (Non-Af Amer) 13.9 BUN/Creatinine Ratio 14.8 Glucose 146 H POC Glucose (mg/dL) 192 H Lactic Acid Calcium 8.8 Total Bilirubin AST ALT Alkaline Phosphatase Troponin I B-Natriuretic Peptide Total Protein Albumin Globulin Albumin/Globulin Ratio Urine Color Urine Appearance Urine pH Ur Specific [place] Urine Protein Urine Ketones Urine Blood Urine Nitrate Urine Bilirubin Urine Urobilinogen Ur Leukocyte Esterase Ur Random Creatinine Ur Random Sodium Renal Sodium Excretion Urine Potassium Urine Glucose A/P: POD#1 s/p pericardial window, with subsequent pneumothorax. Now doing better. Continue ERNESTINE for now. Swallowing eval per hospitalist; repeat CXR tomorrow. CLFoster
[2016-10-14] MEDS: Insulin LISPRO* 1 UNITS UNIT SUBCUT SCH ×3 (09:34→18:46)
[2016-10-14] MEDS: EPINEPHrine,Rac 2.25% NEB.SOL* 0.5 ML INH PRN (09:45)
[2016-10-14] MEDS: Albuterol 2.5 MG/3 ML NEB.SOL* (0.083%) INH PRN ×2 (09:45→16:32)
--- NOTE | 2016-10-14 10:45 | PN ---
Progress Note - Progress Note Date of Service: 10/14/16 SOAP: Subjective: []Much better today. Breathing is doing well, improved. Does not feel dizzy, not in pain and no nausea. Has been in bed, not moving. Taking clear liquids, some oatmeal today. No fevers. Albuterol (Ventolin 2.5 Mg/3 Ml Neb.Marlene*) 2.5 mg INH Q2H PRN PRN Reason: SOB/WHEEZING Last Admin: 10/14/16 09:45 Dose: 2.5 mg Dextrose (D50w Syringe 50 Ml*) 12.5 gm IV PUSH .FOR FS < 60 - SS PRN PRN Reason: FS < 60 Epinephrine HCl (Epinephrine,Rac 2.25% Neb.Marlene*) 0.5 ml INH Q2H PRN PRN Reason: SOB/WHEEZING Last Admin: 10/14/16 09:45 Dose: 2.25 neb Heparin Sodium (Porcine) (Heparin Vial(*)) 5,000 units SUBCUT Q8HR [facility] Last Admin: 10/14/16 05:21 Dose: 5,000 units Lactated Ringer's (Lactated Ringers 1000 Ml Bag*) 1,000 mls @ 75 mls/hr IV PER RATE [facility] Last Admin: 10/14/16 09:34 Dose: 75 mls/hr Insulin Human Lispro (Humalog*) 0 units SUBCUT AC [facility] PRN Reason: Protocol Last Admin: 10/14/16 09:34 Dose: 3 units Oxycodone/Acetaminophen (Percocet 5/325 Tab*) 1 tab PO Q3H PRN PRN Reason: PAIN - MODERATE Last Admin: 10/14/16 09:34 Dose: 1 tab Oxycodone/Acetaminophen (Percocet 5/325 Tab*) 2 tab PO Q4H PRN PRN Reason: PAIN Objective: [] Vital Signs Temp Pulse Resp BP Pulse Ox 98.4 F 95 21 161/58 93 10/14/16 07:39 10/14/16 10:00 10/14/16 10:00 10/14/16 10:00 10/14/16 10:00 HEENT - Pale, mucosa moist. No JVD SOB at rest talking. Decreased BS both bases. RRR S1S2 Mild distension, non tender good BS No edema, warm, good pulses. Assessment: []66 year old with history of esophageal cancer who has been on 5FU alone since 01/2016, new pericardial effusion, likely progressive disease, ARF. Much improved after emergency pericardial window. Plan: []1. Esophageal cancer. Likely progressive disease. Pericardial biopsy and cytology is pending. Discussed that has has multiple treatment options. The window will often be effective in treating mechanical complication of effusion and prognosis will depend on response to therapy. Will likely need full re- staging with PET/CT after acute hospitalization. 2. Pericardial effusion. Decreased drainage, will continue to follow echo if ERNESTINE drain pulled. 3. Pneumothorax. Will follow and expect to resolve in next 2 days. 4. Decreased BS on exam, BL. Check CT chest non contrast. 5. ARF. Improving, Rodriguez out. Case discussed with Dr. Longo 6. Will re-start home medications: Flomax 0.4 Sertraline 75 mg Lipitor 20 mg
--- NOTE | 2016-10-14 11:26 | ECHO ---
Patient: DARIEL LEBLANC [facility] Rec#: [id number] : 1950 Date: 10/14/2016 Age: 66y Height: 193.04 cm / 76.0 in Weight: 114.31 kg / 251.9 lbs Sex: M BSA: 2.44 Room#: ICU-2 Admit Date#: 10/13/2016 Type: Inpatient Referring: Jair Morris MD Reading: Rickie Campos MD Litigation Secretary: Miladis Chun RDCS CC: STEFANIE REMY Transthoracic Echocardiogram Indication: Dyspnea, pericardial effusion. BP: 126/61 HR: 63 Rhythm: NSR Indications Shortness of Breath Findings History: Esophageal cancer with chemotherapy, HTN, pericardial effusion with tamponade 10/13/16, s/p pericardial window. Technical Comments: The study quality is poor. The study is technically limited due to poor acoustic windows. The study is technically limited due to patient body habitus. Completed at 0915. Left Ventricle: The left ventricular chamber size is normal. Mild to moderate concentric left ventricular hypertrophy is observed. Global left ventricular wall motion and contractility are within normal limits. There is normal left ventricular systolic function. The estimated ejection fraction is 60-65%. There is no consistent Doppler evidence of clinically significant diastolic dysfunction. Left Atrium: The left atrium is severely dilated. Right Ventricle: The right ventricle is mildly dilated. The right ventricular global systolic function is normal. Right Atrium: The right atrium is moderately dilated. Aortic Valve: The aortic valve is trileaflet. The aortic valve leaflets are mildly thickened. Systolic excursion of the aortic valve cusps is reduced. There is no evidence of aortic regurgitation. There is mild aortic stenosis. The mean gradient of the aortic valve is 12.05 mmHg. Mitral Valve: The mitral valve leaflets are mildly thickened. There is a trace of mitral regurgitation. There is no evidence of mitral stenosis. Tricuspid Valve: The tricuspid valve leaflets are normal. There is mild to moderate tricuspid regurgitation. The right ventricular systolic pressure is estimated at 44 mmHg. There is evidence of mild to moderate pulmonary hypertension. There is no tricuspid stenosis. Pulmonic Valve: The pulmonic valve structure is not well visualized. There is no evidence of pulmonic regurgitation. There is no pulmonic stenosis. Pericardium: A trivial pericardial effusion is visualized. There are no signs of significant hemodynamic compromise. A pericardial fat pad is visualized. Aorta: There is mild dilatation of the ascending aorta. There is no dilatation of the aortic arch. There is no dilation of the aortic root. Pulmonary Artery: The main pulmonary artery is not well visualized. Venous: The venous system is not well visualized. Conclusions Mild to moderate concentric left ventricular hypertrophy is observed. Global left ventricular wall motion and contractility are within normal limits. There is normal left ventricular systolic function. The estimated ejection fraction is 60-65%. Systolic excursion of the aortic valve cusps is reduced. There is mild aortic stenosis. The mean gradient of the aortic valve is 12.05 mmHg. Peak velicity 2.4 m/sec There is a trace of mitral regurgitation. There is mild to moderate tricuspid regurgitation. There is evidence of mild to moderate pulmonary hypertension. A trivial pericardial effusion is visualized. There are no signs of significant hemodynamic compromise. Pericardial effusion is no longer present Measurements Name Value Normal Range RVIDd (AP) 2D 3.06 cm (0.9 - 2.6) RVDdMajor (2D) 4.8 cm (2.2 - 4.4) RVAW (2D) 0.8 cm (0.2 - 0.5) RAd ISD 4CH 5.4 cm (3.4 - 4.9) RA (A4C)W 5.2 cm (2.9 - 4.6) IVSd (2D) 1.3 cm (0.6 - 1) LVPWd (2D) 1.2 cm (0.6 - 1) LVIDd (2D) 5.3 cm (3.6 - 5.4) LVIDs (2D) 2.4 cm - LV FS (2D) 54 % (25 - 45) Aortic Annulus 2.1 cm (1.4 - 2.6) Ao root diameter (2D) 3.4 cm (2.1 - 3.5) Ascending Ao 3.7 cm (2.1 - 3.4) Aortic arch 3.1 cm (1.8 - 3.4) LA dimension (AP) 2D 4.8 cm (2.3 - 3.8) LAd ISD 4CH 6.3 cm (2.9 - 5.3) LA ISD 4CH W 5.8 cm (2.5 - 4.5) Name Value Normal Range LA ESV SP 4CH (A/L) 95 ml - LA ESV SP 2CH (A/L) 156 ml - LA ESV BP (A/L) 123 ml - LA ESV BP (A/L) index 50.36 ml/m2 - LA ESV SP 4CH (MOD) 91 ml - LA ESV SP 2CH (MOD) 138 ml - Name Value Normal Range MV E-wave Vmax 0.9 m/sec - MV deceleration time 292.3 msec - MV A-wave Vmax 0.64 m/sec - MV E:A ratio 1.45 ratio - Name Value Normal Range AV Vmax 2.4 m/sec - AV VTI 49.5 cm - AV peak gradient 23.7 mmHg - AV mean gradient 12.05 mmHg - LVOT diameter 2.2 cm - LVOT Vmax 1.46 m/sec - LVOT VTI 31.64 cm - LVOT peak gradient 8.54 mmHg - LVOT mean gradient 4.26 mmHg - DINH (continuity Vmax) 2.3 cm2 - DINH (continuity VTI) 2.4 cm2 - DARRYL Vmax 0.7 m/sec - Name Value Normal Range TR Vmax 3 m/sec - TR peak gradient 36 mmHg - RAP 8 mmHg - RVSP 44 mmHg - Name Value Normal Range PV Vmax 0.97 m/sec - PV peak gradient 3.74 mmHg -
[2016-10-14] MEDS: Atorvastatin* 20 MG TAB PO SCH (18:47)
[2016-10-14] MEDS: Tamsulosin CAP* 0.4 MG PO SCH (22:11)
[2016-10-15] MEDS: oxyCODONE/Acetamin 5/325 MG* TAB PO PRN (04:31)
[2016-10-15] MEDS: EPINEPHrine,Rac 2.25% NEB.SOL* 0.5 ML INH PRN (04:41)
[2016-10-15] MEDS ORDERED: Ondansetron INJ* 2 MG/ML VIAL ONE (04:57)
[2016-10-15] MEDS ORDERED: Ondansetron INJ* 2 MG/ML VIAL IV PRN (04:57)
[2016-10-15] MEDS: Heparin VIAL(*) 5000 UNITS/ML VIAL (FIVE THOUSAND) SUBCUT SCH ×3 (05:01→21:22)
[2016-10-15 05:45] LABS: Hematocrit 32 % (42-52); Hemoglobin 10.6 g/dl (14.0-18.0); Mean Corpuscular HGB Conc 33 g/dl (31-36); Mean Corpuscular Hemoglobin 30 pg (27-31); Mean Corpuscular Volume 92 fL (80-94); Mean Platelet Volume 10 um3 (7.4-10.4); Red Blood Count 3.51 10^6/ul (4.0-5.4); Red Cell Distribution Width 15 % (10.5-15)
[2016-10-15 05:59] LABS: Albumin 3.8 g/dL (3.2-5.2); BUN/Creatinine Ratio 22.7 (8-20); EGFR African American 29.4 (>60); EGFR Non-African American 22.8 (>60); Globulin 2.7 g/dL (2-4); Magnesium 1.9 mg/dL (1.9-2.7); Potassium 4.3 mmol/L (3.5-5.0); Total Bilirubin 0.8 mg/dL (0.2-1.0); Total Protein 6.5 g/dL (6.4-8.9)
[2016-10-15] MEDS: hydrALAZINE IV* 20 MG/ML VIAL IV SLOW PU PRN ×2 (06:24→18:35)
[2016-10-15] MEDS: Docusate CAP* 100 MG PO PRN (06:24)
--- NOTE | 2016-10-15 07:39 | RAD ---
HISTORY: Evaluate pneumothorax COMPARISONS: October 13, 2016 VIEWS:1: Single frontal portable view of the chest at 6:08 AM FINDINGS: LINES AND TUBES: A right-sided chest port is noted from subclavian approach with the tip overlying the superior vena cava. A right-sided chest tube is noted. CARDIOMEDIASTINAL SILHOUETTE: The cardiomediastinal silhouette is stable. PLEURA: There are small bilateral pleural effusions. There is no appreciable residual pneumothorax LUNG PARENCHYMA: There is patchy alveolar opacification lung bases bilaterally ABDOMEN: The upper abdomen is clear. There is no subphrenic gas. BONES AND SOFT TISSUES: No bone or soft tissue abnormalities are noted. IMPRESSION: 1. LINES AND TUBES ABOVE. 2. NO APPRECIABLE RESIDUAL PNEUMOTHORAX. 3. SMALL BILATERAL PLEURAL EFFUSIONS WITH BIBASILAR ATELECTASIS VERSUS CONSOLIDATION
[2016-10-15] MEDS: Sertraline* 25 MG TAB PO SCH (08:17)
[2016-10-15] MEDS: amLODIPine TAB* 5 MG PO SCH (08:17)
[2016-10-15] MEDS: Metoprolol Tartrate TAB* 50 mg PO SCH ×2 (08:17→21:22)
[2016-10-15] MEDS: Omeprazole CAP* 20 MG PO SCH (08:18)
[2016-10-15] MEDS: Insulin LISPRO* 1 UNITS UNIT SUBCUT SCH ×3 (09:50→18:47)
--- NOTE | 2016-10-15 11:17 | RAD ---
INDICATION: Pleural effusion. Esophageal carcinoma COMPARISON: Chest x-ray October 15, 2016; CT chest May 14, 2016; CT abdomen pelvis October 13, 2016 TECHNIQUE: Noncontrast axial source images were obtained from the thoracic inlet to the hemidiaphragms. Coronal and sagittal reconstructed images were acquired. The thyroid is enlarged and heterogeneous. The findings most consistent with a goiter. The appearance unchanged there is a right-sided [id number] catheter terminating in the superior vena cava. Chest wall: There are no acute abnormalities of the bony thorax or chest wall. There is bilateral supraclavicular and left axillary lymphadenopathy. The left axillary lymph nodes measure up to 2.3 cm in short axis. Lungs : There are bibasilar consolidative changes similar to the recent CT of the abdomen and pelvis. There is new consolidation in the right middle. A spiculated focus in left lung apex appears unchanged. There are no other spiculated or nodular parenchymal lesions. Cardiomediastinal structures: There is interval placement of pericardial drainage catheter. The pericardial effusion has resolved. The heart is mildly enlarged. There is pneumomediastinum. There mediastinal adenopathy in the prevascular space, aortic or pulmonary window, and in the subcarinal region. The largest lymph nodes measure up to 2.5 cm Pleura : Moderate size bilateral pleural effusions effusions, unchanged. Other: There are no acute or significant CT findings of the visualized upper abdomen. IMPRESSION: 1. Heterogeneous thyroid most consistent with goiter. 2. Bilateral supraclavicular and left axillary lymphadenopathy. 3. Bibasilar consolidative changes in addition to new right middle lobe consolidation. 4. A spiculated focus left lung apex appears unchanged. This may be related to scarring. 5. Interval placement of a pericardial drainage catheter with resolution of the pericardial effusion. Postsurgical changes to include pneumomediastinum. 6. Mediastinal lymphadenopathy. 7. Moderate-sized bilateral pleural effusions.
[2016-10-15] MEDS ORDERED: Metoprolol Tartrate IV* 1 MG/ML 5 ML VIAL ONE (11:29)
[2016-10-15] MEDS: Bisacodyl EC TAB* 5 MG PO SCH (11:36)
[2016-10-15] MEDS ORDERED: Sodium Phosphate ADULT ENEMA* 118 ml bottle ONE (13:23)
[2016-10-15] MEDS ORDERED: Naloxone* 0.4 MG/ML 1 ML VIAL ONE (13:47)
[2016-10-15] MEDS ORDERED: fentaNYL* 50 MCG/ML 2 ML VIAL (100 MCG VIAL) ONE (13:47)
[2016-10-15] MEDS ORDERED: Flumazenil* 0.1 MG/ML 5 ML MDV ONE (13:47)
[2016-10-15] MEDS ORDERED: Midazolam* 1 MG/ML 10 ML VIAL (10 MG) ONE (13:48)
[2016-10-15] MEDS ORDERED: Sodium Phosphate ADULT ENEMA* 118 ml bottle PR PRN (14:19)
[2016-10-15] MEDS: Atorvastatin* 20 MG TAB PO SCH (18:35)
[2016-10-15] MEDS ORDERED: Senna TAB PO PRN (21:00)
[2016-10-15] MEDS ORDERED: Zolpidem TAB* 5 MG PO SCH (21:00)
[2016-10-15] MEDS: Tamsulosin CAP* 0.4 MG PO SCH (21:21)
[2016-10-15] MEDS: traZODone TAB* 50 MG TAB PO PRN (21:22)
[2016-10-16] MEDS: oxyCODONE/Acetamin 5/325 MG* TAB PO PRN ×5 (00:47→20:04)
--- NOTE | 2016-10-16 01:06 | CARD ---
CC: Dr. Sewell* CARDIOVERSION NOTE: DATE OF PROCEDURE: 10/15/16 - ROOM #ICU-02 PROCEDURE: Cardioversion. INDICATION: Atrial fibrillation. HISTORY: The patient is a 66-year-old gentleman who was admitted to the hospital this weekend with a large pericardial effusion. He is status post pericardial window. The patient went into atrial fibrillation last night. Cardioversion was recommended. DESCRIPTION OF PROCEDURE: The patient was in a fasting state. Informed consent had been obtained prior to the procedure. All labs were reviewed. The patient was given 2 mg of Versed and 25 mcg of Fentanyl for conscious sedation. The patient was cardioverted to normal sinus rhythm with 150 joules of synchronized biphasic energy. The patient tolerated the procedure well with no complications. The patient will restart his beta-dacia therapy. The patient will not start anticoagulation at this time because of his pericardial drain. [id number] #: [id number] MTDD
[2016-10-16] MEDS: Heparin VIAL(*) 5000 UNITS/ML VIAL (FIVE THOUSAND) SUBCUT SCH ×3 (05:58→21:47)
[2016-10-16 06:15] LABS: BUN/Creatinine Ratio 27.2 (8-20); EGFR African American 52.2 (>60); EGFR Non-African American 40.6 (>60); Potassium 4.3 mmol/L (3.5-5.0)
[2016-10-16] MEDS: Insulin LISPRO* 1 UNITS UNIT SUBCUT SCH ×3 (07:50→18:46)
[2016-10-16] MEDS: Sertraline* 25 MG TAB PO SCH (08:21)
[2016-10-16] MEDS: hydrALAZINE IV* 20 MG/ML VIAL IV SLOW PU PRN (08:21)
[2016-10-16] MEDS: Metoprolol Tartrate TAB* 50 mg PO SCH (08:21)
[2016-10-16] MEDS: Bisacodyl EC TAB* 5 MG PO SCH (08:22)
[2016-10-16] MEDS: amLODIPine TAB* 5 MG PO SCH ×2 (08:22→20:03)
[2016-10-16] MEDS: Omeprazole CAP* 20 MG PO SCH (08:22)
--- NOTE | 2016-10-16 09:19 | PN ---
Progress Note - Progress Note Date of Service: 10/16/16 Note: Surgery Mr. Lowe denies complaints. He had elevated HR yesterday, now resolved. He has had some BP elevations, cardiology managing. Vital Signs 10/15/16 10/15/16 10/15/16 09:30 10:00 10:15 Temperature Pulse Rate 133 121 Respiratory 17 21 Rate Blood Pressure 146/82 159/97 168/84 (mmHg) O2 Sat by Pulse 96 96 Oximetry 10/15/16 10/15/16 10/15/16 10:30 10:44 10:45 Temperature Pulse Rate 119 138 Respiratory 18 20 Rate Blood Pressure 149/104 157/91 (mmHg) O2 Sat by Pulse 98 97 Oximetry 10/15/16 10/15/16 10/15/16 11:00 11:40 11:47 Temperature Pulse Rate 115 111 115 Respiratory 16 18 16 Rate Blood Pressure 163/83 142/91 155/83 (mmHg) O2 Sat by Pulse 96 97 96 Oximetry 10/15/16 10/15/16 10/15/16 11:50 12:00 13:00 Temperature 98.2 F Pulse Rate 127 Respiratory 16 25 Rate Blood Pressure (mmHg) O2 Sat by Pulse 96 Oximetry 10/15/16 10/15/16 10/15/16 13:30 13:45 14:00 Temperature Pulse Rate 49 134 Respiratory 24 17 20 Rate Blood Pressure 159/89 158/96 156/100 (mmHg) O2 Sat by Pulse 96 98 Oximetry 10/15/16 10/15/16 10/15/16 14:15 14:30 14:35 Temperature Pulse Rate 128 130 142 Respiratory 15 16 18 Rate Blood Pressure 148/84 169/101 150/87 (mmHg) O2 Sat by Pulse 96 97 96 Oximetry 10/15/16 10/15/16 10/15/16 14:40 14:45 14:50 Temperature Pulse Rate 146 140 73 Respiratory 15 19 17 Rate Blood Pressure 155/92 146/95 149/72 (mmHg) O2 Sat by Pulse 97 96 94 Oximetry 10/15/16 10/15/16 10/15/16 14:55 14:59 15:00 Temperature Pulse Rate 73 73 Respiratory 16 16 16 Rate Blood Pressure 138/63 133/66 (mmHg) O2 Sat by Pulse 96 96 Oximetry 10/15/16 10/15/16 10/15/16 15:05 15:15 15:30 Temperature Pulse Rate 73 72 73 Respiratory 19 17 17 Rate Blood Pressure 135/66 126/70 134/68 (mmHg) O2 Sat by Pulse 96 96 96 Oximetry 10/15/16 10/15/16 10/15/16 15:45 16:00 16:15 Temperature 98.2 F Pulse Rate 73 74 74 Respiratory 16 17 16 Rate Blood Pressure 146/71 138/72 149/72 (mmHg) O2 Sat by Pulse 97 97 96 Oximetry 10/15/16 10/15/16 10/15/16 16:30 17:00 17:15 Temperature Pulse Rate 74 76 77 Respiratory 17 21 13 Rate Blood Pressure 148/71 156/74 162/77 (mmHg) O2 Sat by Pulse 96 96 96 Oximetry 10/15/16 10/15/16 10/15/16 17:30 17:45 18:00 Temperature Pulse Rate 78 77 81 Respiratory 18 15 25 Rate Blood Pressure 162/75 161/72 169/74 (mmHg) O2 Sat by Pulse 93 94 94 Oximetry 10/15/16 10/15/16 10/15/16 18:15 18:30 18:45 Temperature Pulse Rate 84 79 Respiratory 22 17 19 Rate Blood Pressure 172/74 150/81 157/73 (mmHg) O2 Sat by Pulse 95 95 Oximetry 10/15/16 10/15/16 10/15/16 19:00 19:15 19:30 Temperature Pulse Rate 80 80 80 Respiratory 20 16 16 Rate Blood Pressure 149/62 160/64 131/52 (mmHg) O2 Sat by Pulse 96 95 96 Oximetry 10/15/16 10/15/16 10/15/16 19:45 20:00 20:15 Temperature 98.6 F Pulse Rate 79 80 77 Respiratory 17 19 15 Rate Blood Pressure 147/64 164/80 152/76 (mmHg) O2 Sat by Pulse 94 94 96 Oximetry 10/15/16 10/15/16 10/15/16 20:30 20:45 21:00 Temperature Pulse Rate 84 81 79 Respiratory 23 19 17 Rate Blood Pressure 151/91 157/69 151/73 (mmHg) O2 Sat by Pulse 92 95 95 Oximetry 10/15/16 10/15/16 10/15/16 21:15 21:30 21:45 Temperature Pulse Rate 78 80 76 Respiratory 18 18 19 Rate Blood Pressure 160/73 164/77 153/72 (mmHg) O2 Sat by Pulse 95 96 96 Oximetry 10/15/16 10/15/16 10/15/16 22:00 22:30 23:00 Temperature Pulse Rate 76 76 74 Respiratory 17 21 23 Rate Blood Pressure 154/67 157/69 149/68 (mmHg) O2 Sat by Pulse 94 94 95 Oximetry 10/15/16 10/16/16 10/16/16 23:30 00:00 00:01 Temperature 97.7 F Pulse Rate 64 73 73 Respiratory 16 19 19 Rate Blood Pressure 129/60 154/70 (mmHg) O2 Sat by Pulse 95 95 95 Oximetry 10/16/16 10/16/16 10/16/16 00:11 00:17 00:30 Temperature Pulse Rate 72 79 62 Respiratory 20 16 19 Rate Blood Pressure 134/58 (mmHg) O2 Sat by Pulse 93 95 95 Oximetry 10/16/16 10/16/16 10/16/16 00:50 01:00 01:45 Temperature Pulse Rate 72 69 Respiratory 22 19 17 Rate Blood Pressure (mmHg) O2 Sat by Pulse 96 95 Oximetry 10/16/16 10/16/16 10/16/16 02:00 03:00 04:00 Temperature 97.5 F Pulse Rate 69 62 59 Respiratory 19 21 13 Rate Blood Pressure 152/77 140/57 114/47 (mmHg) O2 Sat by Pulse 94 95 91 Oximetry 10/16/16 10/16/16 10/16/16 05:00 06:00 06:52 Temperature Pulse Rate 70 72 Respiratory 14 13 18 Rate Blood Pressure 157/78 170/83 (mmHg) O2 Sat by Pulse 96 96 Oximetry 10/16/16 10/16/16 10/16/16 06:55 07:00 07:43 Temperature 98.3 F Pulse Rate 74 Respiratory 18 14 Rate Blood Pressure 177/83 (mmHg) O2 Sat by Pulse 97 Oximetry 10/16/16 10/16/16 10/16/16 08:00 08:03 08:41 Temperature Pulse Rate 78 83 73 Respiratory 18 21 15 Rate Blood Pressure 194/96 (mmHg) O2 Sat by Pulse [address]: serous drainage pericardial drain: serous drainage Path: malignant Intake & Output 10/15/16 10/16/16 10/16/16 22:59 06:59 14:59 Intake Total 268 Output Total 9831 907 Balance -767 -900 Weight 261 lb 0.437 oz Intake: IV Fluids 118 LR 118 Oral 150 Output: ERNESTINE #1 10 7 Chest Tube #1 50 100 Urine 975 800 Other: Estimated Void Medium # Bowel Movements 1 Estimated Stool Amount Small Laboratory Results - last 24 hr 10/15/16 10/15/16 10/16/16 11:38 16:51 05:45 Sodium 140 Potassium 4.3 Chloride 108 Carbon Dioxide 25 Anion Gap 7 BUN 46 H Creatinine 1.69 H Est GFR ( Amer) 52.2 Est GFR (Non-Af Amer) 40.6 BUN/Creatinine Ratio 27.2 H Glucose 120 H POC Glucose (mg/dL) 142 H 140 H Calcium 9.0 A/P: Improving; pericardial drain can come out if okay with cardiology; would leave CT in for now, can be attached to cruz bag. CLFoster
--- NOTE | 2016-10-16 11:31 | PN ---
Progress Note - Progress Note Date of Service: 10/16/16 SOAP: Subjective: []Feeling well, wants to get out of hospital. Breathing is good. No fast heart beats, blood pressure has been fine. No fever or chills. Seen by Dr. Quintero, planning on removal of pericardial drain, leaving CT in place at this time. Albuterol (Ventolin 2.5 Mg/3 Ml Neb.Marlene*) 2.5 mg INH Q2H PRN PRN Reason: SOB/WHEEZING Last Admin: 10/14/16 16:32 Dose: 2.5 mg Amlodipine Besylate (Norvasc Tab*) 5 mg PO DAILY [facility] Last Admin: 10/16/16 08:22 Dose: 5 mg Atorvastatin Calcium (Lipitor*) 20 mg PO 1700 [facility] Last Admin: 10/15/16 18:35 Dose: 20 mg Bisacodyl (Dulcolax Ec Tab*) 5 mg PO DAILY [facility] Last Admin: 10/16/16 08:22 Dose: 5 mg Dextrose (D50w Syringe 50 Ml*) 12.5 gm IV PUSH .FOR FS < 60 - SS PRN PRN Reason: FS < 60 Docusate Sodium (Colace Cap*) 100 mg PO BID PRN PRN Reason: CONSTIPATION Last Admin: 10/15/16 06:24 Dose: 100 mg Epinephrine HCl (Epinephrine,Rac 2.25% Neb.Marlene*) 0.5 ml INH Q2H PRN PRN Reason: SOB/WHEEZING Last Admin: 10/15/16 04:41 Dose: 0.5 neb Heparin Sodium (Porcine) (Heparin Vial(*)) 5,000 units SUBCUT Q8HR [facility] Last Admin: 10/16/16 05:58 Dose: 5,000 units Heparin Sodium (Porcine) (Heparin Flush Port (Ivad)) 5 ml FLUSH DAILY [facility] Last Admin: 10/16/16 06:00 Dose: 5 ml Hydralazine HCl (Apresoline Iv*) 5 mg IV SLOW PU Q6H PRN PRN Reason: BLOOD PRESSURE Last Admin: 10/16/16 08:21 Dose: 5 mg Insulin Human Lispro (Humalog*) 0 units SUBCUT AC [facility] PRN Reason: Protocol Last Admin: 10/16/16 07:50 Dose: Not Given Metoprolol Tartrate (Lopressor Tab*) 50 mg PO Q12HR [facility] Last Admin: 10/16/16 08:21 Dose: 50 mg Omeprazole (Prilosec Cap*) 20 mg PO DAILY [facility] Last Admin: 10/16/16 08:22 Dose: 20 mg Ondansetron HCl (Zofran Inj*) 4 mg IV Q4H PRN PRN Reason: NAUSEA Oxycodone/Acetaminophen (Percocet 5/325 Tab*) 1 tab PO Q3H PRN PRN Reason: PAIN - MODERATE Last Admin: 10/16/16 06:52 Dose: 1 tab Oxycodone/Acetaminophen (Percocet 5/325 Tab*) 2 tab PO Q4H PRN PRN Reason: PAIN Last Admin: 10/15/16 04:31 Dose: 2 tab Senna (Senokot Tab*) 2 tab PO BEDTIME PRN PRN Reason: CONSTIPATION Sertraline HCl (Zoloft*) 75 mg PO DAILY [facility] Last Admin: 10/16/16 08:21 Dose: 75 mg Sodium Biphosphate/Sodium Phosphate (Fleet Enema*) 1 bottle [place] DAILY PRN PRN Reason: CONSTIPATION Tamsulosin HCl (Flomax Cap*) 0.4 mg PO BEDTIME [facility] Last Admin: 10/15/16 21:21 Dose: 0.4 mg Trazodone HCl (Desyrel Tab*) 50 mg PO BEDTIME PRN PRN Reason: SLEEP AID Last Admin: 10/15/16 21:22 Dose: 50 mg Zolpidem Tartrate (Ambien Tab*) 5 mg PO BEDTIME [facility] Last Admin: 10/15/16 21:21 Dose: 5 mg Objective: [] Vital Signs Temp Pulse Resp BP Pulse Ox 98.4 F 73 15 194/96 96 10/16/16 11:05 10/16/16 08:41 10/16/16 08:41 10/16/16 08:03 10/16/16 08:41 HEENT - Pale, mucosa moist. No JVD Pulm - better, no SOB at rest, in conversation,. CTA on exam RRR S1S2, 80s Mild distension, non tender good BS No edema, warm, good pulses. Assessment: []66 year old with history of esophageal cancer who has been on 5FU alone since 01/2016, new pericardial effusion second to progressive disease ARF. Continues to improve after emergency pericardial window. Plan: []1. Esophageal cancer. Progressive disease. Will discuss with Dr. Sewell and parveen plan treatment once seen in [facility]. 2. Pericardial effusion. Drain likely out today and will follow echo, symptoms. 3. Pneumothorax. Will follow CT will remain in for now. 4. ARF. Improving, Rodriguez out. Follow 6. Afib. Post conversion and on Beta dacia, stable overnight. 7. Will plan transfer to [facility] if ok with cardiology and surgery.
[2016-10-16] MEDS: Atorvastatin* 20 MG TAB PO SCH (17:10)
[2016-10-16] MEDS: Tamsulosin CAP* 0.4 MG PO SCH (20:03)
[2016-10-16] MEDS: Metoprolol Tartrate TAB* 25 MG PO SCH (20:05)
[2016-10-16] MEDS ORDERED: ZOLPIDEM 6.25 MG PO PRN (21:00)
[2016-10-16] MEDS: traZODone TAB* 50 MG TAB PO PRN (21:47)
[2016-10-17] MEDS ORDERED: HYDROmorphone* 1 MG/ML 1 ML CARPUJECT IV ONE (02:20)
[2016-10-17] MEDS ORDERED: HYDROmorphone* 1 MG/ML 1 ML CARPUJECT ONE (02:26)
[2016-10-17] MEDS: oxyCODONE/Acetamin 5/325 MG* TAB PO PRN ×2 (02:30→08:48)
[2016-10-17] MEDS: Heparin VIAL(*) 5000 UNITS/ML VIAL (FIVE THOUSAND) SUBCUT SCH ×3 (06:19→22:13)
[2016-10-17 07:02] LABS: Albumin 3.6 g/dL (3.2-5.2); BUN/Creatinine Ratio 25.8 (8-20); Calcium 9.3 mg/dL (8.6-10.3); EGFR African American 69.4 (>60); EGFR Non-African American 53.9 (>60); Globulin 2.6 g/dL (2-4); Magnesium 1.8 mg/dL (1.9-2.7); Potassium 4.6 mmol/L (3.5-5.0); Total Bilirubin 0.8 mg/dL (0.2-1.0); Total Protein 6.2 g/dL (6.4-8.9)
[2016-10-17] MEDS: amLODIPine TAB* 5 MG PO SCH ×2 (08:48→20:19)
[2016-10-17] MEDS: Sertraline* 25 MG TAB PO SCH (08:48)
[2016-10-17] MEDS: Bisacodyl EC TAB* 5 MG PO SCH (08:48)
[2016-10-17] MEDS: Omeprazole CAP* 20 MG PO SCH (08:48)
[2016-10-17] MEDS: Metoprolol Tartrate TAB* 25 MG PO SCH ×2 (08:48→20:18)
[2016-10-17] MEDS: Insulin LISPRO* 1 UNITS UNIT SUBCUT SCH (08:49)
--- NOTE | 2016-10-17 08:54 | PN ---
Progress Note - Progress Note Date of Service: 10/17/16 Note: Surgery Mr. Lowe reports he is having a new pain in the right side. He thinks it started when he was working on the incentive spirometer. Vital Signs 10/16/16 10/16/16 10/16/16 09:00 09:04 10:00 Temperature Pulse Rate 67 59 Respiratory 11 13 18 Rate Blood Pressure 147/73 (mmHg) O2 Sat by Pulse 96 94 Oximetry 10/16/16 10/16/16 10/16/16 10:01 11:00 11:03 Temperature Pulse Rate 57 59 Respiratory 14 14 Rate Blood Pressure 157/79 128/67 (mmHg) O2 Sat by Pulse 95 96 Oximetry 10/16/16 10/16/16 10/16/16 11:05 12:00 12:26 Temperature 98.4 F Pulse Rate 70 71 Respiratory 13 14 Rate Blood Pressure 159/71 (mmHg) O2 Sat by Pulse 96 97 Oximetry 10/16/16 10/16/16 10/16/16 13:00 14:00 14:02 Temperature Pulse Rate 68 76 74 Respiratory 13 16 15 Rate Blood Pressure 151/68 (mmHg) O2 Sat by Pulse 97 96 96 Oximetry 10/16/16 10/16/16 10/16/16 14:11 15:00 15:24 Temperature 99.2 F Pulse Rate 74 Respiratory 15 22 Rate Blood Pressure 154/84 (mmHg) O2 Sat by Pulse 97 Oximetry 10/16/16 10/16/16 10/16/16 16:00 17:00 18:00 Temperature Pulse Rate 63 76 75 Respiratory 18 25 22 Rate Blood Pressure 168/77 169/77 179/90 (mmHg) O2 Sat by Pulse 96 95 95 Oximetry 10/16/16 10/16/16 10/16/16 19:00 19:31 20:00 Temperature Pulse Rate Respiratory 19 Rate Blood Pressure 180/86 179/78 165/79 (mmHg) O2 Sat by Pulse 96 95 97 Oximetry 10/16/16 10/16/16 10/16/16 20:04 20:05 21:00 Temperature Pulse Rate Respiratory 20 20 15 Rate Blood Pressure 152/80 (mmHg) O2 Sat by Pulse 92 Oximetry 10/16/16 10/16/16 10/16/16 22:00 22:16 22:17 Temperature Pulse Rate 83 Respiratory 14 20 Rate Blood Pressure 169/87 (mmHg) O2 Sat by Pulse 96 95 95 Oximetry 10/16/16 10/16/16 10/17/16 23:00 23:03 00:00 Temperature Pulse Rate Respiratory 14 13 13 Rate Blood Pressure 141/80 (mmHg) O2 Sat by Pulse 94 96 93 Oximetry 10/17/16 10/17/16 10/17/16 00:01 01:00 02:00 Temperature 98.1 F Pulse Rate Respiratory 16 19 Rate Blood Pressure 159/77 124/60 182/93 (mmHg) O2 Sat by Pulse 93 95 97 Oximetry 10/17/16 10/17/16 10/17/16 02:07 02:30 02:35 Temperature Pulse Rate Respiratory 24 24 Rate Blood Pressure 181/90 (mmHg) O2 Sat by Pulse 98 Oximetry 10/17/16 10/17/16 10/17/16 03:00 04:00 05:00 Temperature 98.7 F Pulse Rate Respiratory 18 19 13 Rate Blood Pressure 160/77 140/75 140/78 (mmHg) O2 Sat by Pulse 93 94 89 Oximetry 10/17/16 10/17/16 10/17/16 06:00 06:52 07:00 Temperature Pulse Rate Respiratory 13 16 9 Rate Blood Pressure 161/85 146/75 (mmHg) O2 Sat by Pulse 95 96 Oximetry 10/17/16 10/17/16 10/17/16 07:44 08:30 08:48 Temperature 97.7 F Pulse Rate 60 Respiratory 12 14 Rate Blood Pressure (mmHg) O2 Sat by Pulse 95 Oximetry Lungs: clear to ausc. heart: reg. CT: serous drainage ERNESTINE: scant drainage Intake & Output 10/16/16 10/17/16 10/17/16 22:59 06:59 14:59 Intake Total 400 250 Output Total 421 Balance 400 -171 Weight 258 lb 2.581 oz Intake: Oral 400 250 Output: ERNESTINE #1 6 Chest Tube #1 15 Urine 400 Other: Estimated Void Medium Medium Laboratory Results - last 24 hr 10/16/16 10/16/16 10/17/16 12:13 18:27 06:32 Sodium 140 Potassium 4.6 Chloride 108 Carbon Dioxide 25 Anion Gap 7 BUN 34 H Creatinine 1.32 H Est GFR ( Amer) 69.4 Est GFR (Non-Af Amer) 53.9 BUN/Creatinine Ratio 25.8 H Glucose 119 H POC Glucose (mg/dL) 160 H 119 H Calcium 9.3 Magnesium 1.8 L Total Bilirubin 0.80 AST 22 ALT 23 Alkaline Phosphatase 85 Total Protein 6.2 L Albumin 3.6 Globulin 2.6 Albumin/Globulin Ratio 1.4 A/P: Will d/c ERNESTINE, but leave in CT for now; will check CXR.
--- NOTE | 2016-10-17 09:20 | PN ---
Progress Note - Progress Note Date of Service: 10/17/16 SOAP: Subjective: []Has pain in right chest. Feels like hit with baseball bat. Sharp pain, worse with deep breath, constant. No SOB, did well walking yesterday. Blood pressure better. Eating reasonably well, bowls moving. Albuterol (Ventolin 2.5 Mg/3 Ml Neb.Marlene*) 2.5 mg INH Q2H PRN PRN Reason: SOB/WHEEZING Last Admin: 10/14/16 16:32 Dose: 2.5 mg Amlodipine Besylate (Norvasc Tab*) 5 mg PO BID [facility] Last Admin: 10/17/16 08:48 Dose: 5 mg Atorvastatin Calcium (Lipitor*) 20 mg PO 1700 [facility] Last Admin: 10/16/16 17:10 Dose: 20 mg Bisacodyl (Dulcolax Ec Tab*) 5 mg PO DAILY [facility] Last Admin: 10/17/16 08:48 Dose: 5 mg Dextrose (D50w Syringe 50 Ml*) 12.5 gm IV PUSH .FOR FS < 60 - SS PRN PRN Reason: FS < 60 Docusate Sodium (Colace Cap*) 100 mg PO BID PRN PRN Reason: CONSTIPATION Last Admin: 10/15/16 06:24 Dose: 100 mg Epinephrine HCl (Epinephrine,Rac 2.25% Neb.Marlene*) 0.5 ml INH Q2H PRN PRN Reason: SOB/WHEEZING Last Admin: 10/15/16 04:41 Dose: 0.5 neb Heparin Sodium (Porcine) (Heparin Vial(*)) 5,000 units SUBCUT Q8HR [facility] Last Admin: 10/17/16 06:19 Dose: 5,000 units Heparin Sodium (Porcine) (Heparin Flush Port (Ivad)) 5 ml FLUSH DAILY [facility] Last Admin: 10/17/16 08:49 Dose: Not Given Hydralazine HCl (Apresoline Iv*) 5 mg IV SLOW PU Q6H PRN PRN Reason: BLOOD PRESSURE Last Admin: 10/16/16 08:21 Dose: 5 mg Insulin Human Lispro (Humalog*) 0 units SUBCUT AC [facility] PRN Reason: Protocol Last Admin: 10/17/16 08:49 Dose: Not Given Metoprolol Tartrate (Lopressor Tab*) 75 mg PO BID [facility] Last Admin: 10/17/16 08:48 Dose: 75 mg Omeprazole (Prilosec Cap*) 20 mg PO DAILY [facility] Last Admin: 10/17/16 08:48 Dose: 20 mg Ondansetron HCl (Zofran Inj*) 4 mg IV Q4H PRN PRN Reason: NAUSEA Oxycodone/Acetaminophen (Percocet 5/325 Tab*) 1 tab PO Q3H PRN PRN Reason: PAIN - MODERATE Last Admin: 10/17/16 08:48 Dose: 1 tab Oxycodone/Acetaminophen (Percocet 5/325 Tab*) 2 tab PO Q4H PRN PRN Reason: PAIN Last Admin: 10/15/16 04:31 Dose: 2 tab Senna (Senokot Tab*) 2 tab PO BEDTIME PRN PRN Reason: CONSTIPATION Sertraline HCl (Zoloft*) 75 mg PO DAILY [facility] Last Admin: 10/17/16 08:48 Dose: 75 mg Sodium Biphosphate/Sodium Phosphate (Fleet Enema*) 1 bottle [place] DAILY PRN PRN Reason: CONSTIPATION Tamsulosin HCl (Flomax Cap*) 0.4 mg PO BEDTIME [facility] Last Admin: 10/16/16 20:03 Dose: 0.4 mg Trazodone HCl (Desyrel Tab*) 50 mg PO BEDTIME PRN PRN Reason: SLEEP AID Last Admin: 10/16/16 21:47 Dose: 50 mg Zolpidem Tartrate (Ambien Cr (Nf)) 6.25 mg PO BEDTIME PRN PRN Reason: SLEEP Last Admin: 10/16/16 21:47 Dose: 6.25 mg Objective: [] Vital Signs Temp Pulse Resp BP Pulse Ox 97.7 F 60 14 146/75 95 10/17/16 07:44 10/17/16 08:30 10/17/16 08:48 10/17/16 07:00 10/17/16 08:30 HEENT - Pale, mucosa moist. No JVD Pulm - better, no SOB at rest, in conversation CTA on exam, decreased sounds both bases +pain to palpation right chest, reproduction of pain RRR S1S2, 80s Mild distension, non tender good BS No edema, warm, good pulses. CT chest with bilateral pleural effusions, diffuse progression of medistinal LAD and large left axillary LN. Assessment: []66 year old with history of esophageal cancer who has been on 5FU alone since 01/2016, new pericardial effusion second to progressive disease ARF. Continues to improve after emergency pericardial window. Plan: []1. Esophageal cancer. Progressive disease. Will discuss with Dr. Sewell and parveen plan treatment once seen in [facility]. Will likely re-start chemotherapy. 2. Pericardial effusion. Drain likely out today and will follow echo, symptoms. 3. Pneumothorax. Plan on pulling chest tube after CXR. 4. Pleural effusion are presumed malignant. At this time asymptomatic. I would like to get the chest tube out and move to chemotherapy. Progression may require pleurex. 5. ARF is improving. 6. Cardiac. HTN likely second to ARF, controlled with Metoprolol and Norvasc. Cardiology following 7. Afib. Post conversion and on Beta dacia, stable overnight. 8. Chest pain. Pleurisy vs chest wall. Near regional LAD and lower LN near pain. May improve with chest tube out. Check CXR, Oxycontin 10 mg po bid. 9. Will plan transfer to [facility] if ok with cardiology and surgery.
--- NOTE | 2016-10-17 09:47 | RAD ---
INDICATION: Evaluate pleural effusion COMPARISON: October 15, 2016 TECHNIQUE: An AP portable view obtained at 0905 hours is submitted. FINDINGS: Bones/Soft Tissues: There are no acute bony findings. There is a right-sided [id number] catheter terminating the superior vena cava. There is a small caliber right-sided chest tube unchanged in configuration. There is tortuosity of this small caliber tube, unchanged. Cardiomediastinal: The cardiac silhouette is top normal in size. Lungs: Bibasilar airspace disease. Pleura: Moderate size bilateral pleural effusions. The effusions may be slightly smaller. Other: None IMPRESSION: THE TUBES AND CATHETERS ARE UNCHANGED. THERE IS BIBASILAR AIRSPACE DISEASE WITH BILATERAL PLEURAL EFFUSIONS. EFFUSIONS APPEAR SLIGHTLY SMALLER.
[2016-10-17] MEDS: Atorvastatin* 20 MG TAB PO SCH (16:39)
[2016-10-17] MEDS: Docusate CAP* 100 MG PO PRN (20:18)
[2016-10-17] MEDS: Tamsulosin CAP* 0.4 MG PO SCH (20:18)
[2016-10-17] MEDS: oxyCODONE SR TAB(*) 10 MG TAB.SR PO SCH (20:19)
[2016-10-18 04:04] VITALS: BP 182/92
[2016-10-18] MEDS: Heparin VIAL(*) 5000 UNITS/ML VIAL (FIVE THOUSAND) SUBCUT SCH (05:28)
[2016-10-18 06:22] LABS: Hematocrit 31 % (42-52); Hemoglobin 10.1 g/dl (14.0-18.0); Mean Corpuscular HGB Conc 33 g/dl (31-36); Mean Corpuscular Hemoglobin 30 pg (27-31); Mean Corpuscular Volume 91 fL (80-94); Mean Platelet Volume 9 um3 (7.4-10.4); Red Blood Count 3.38 10^6/ul (4.0-5.4); Red Cell Distribution Width 15 % (10.5-15); White Blood Count 6.4 10^3/ul (3.5-10.8)
[2016-10-18] MEDS: Metoprolol Tartrate TAB* 25 MG PO SCH ×2 (06:22→08:25)
[2016-10-18 06:32] LABS: Albumin 3.5 g/dL (3.2-5.2); BUN/Creatinine Ratio 19.5 (8-20); Calcium 9.2 mg/dL (8.6-10.3); EGFR African American 75.3 (>60); EGFR Non-African American 58.5 (>60); Globulin 2.5 g/dL (2-4); Magnesium 1.5 mg/dL (1.9-2.7); Potassium 3.9 mmol/L (3.5-5.0); Total Bilirubin 0.8 mg/dL (0.2-1.0)
[2016-10-18] MEDS: Sertraline* 25 MG TAB PO SCH (08:46)
[2016-10-18] MEDS: Omeprazole CAP* 20 MG PO SCH (08:46)
[2016-10-18] MEDS: oxyCODONE SR TAB(*) 10 MG TAB.SR PO SCH (08:47)
[2016-10-18] MEDS: amLODIPine TAB* 5 MG PO SCH (08:47)
[2016-10-18] MEDS: Bisacodyl EC TAB* 5 MG PO SCH (08:48)
--- NOTE | 2016-10-18 10:35 | PN ---
Progress Note - Progress Note Date of Service: 10/18/16 SOAP: Subjective: []Feeling better, walking well and no SOB. No SOB, pain is better. No fevers. Pericardial drain out, chest tube coming out today. Albuterol (Ventolin 2.5 Mg/3 Ml Neb.Marlene*) 2.5 mg INH Q2H PRN PRN Reason: SOB/WHEEZING Last Admin: 10/14/16 16:32 Dose: 2.5 mg Amlodipine Besylate (Norvasc Tab*) 5 mg PO BID [facility] Last Admin: 10/18/16 08:47 Dose: 5 mg Atorvastatin Calcium (Lipitor*) 20 mg PO 1700 [facility] Last Admin: 10/17/16 16:39 Dose: 20 mg Bisacodyl (Dulcolax Ec Tab*) 5 mg PO DAILY [facility] Last Admin: 10/18/16 08:48 Dose: 5 mg Docusate Sodium (Colace Cap*) 100 mg PO BID PRN PRN Reason: CONSTIPATION Last Admin: 10/17/16 20:18 Dose: 100 mg Heparin Sodium (Porcine) (Heparin Vial(*)) 5,000 units SUBCUT Q8HR [facility] Last Admin: 10/18/16 05:28 Dose: 5,000 units Heparin Sodium (Porcine) (Heparin Flush Port (Ivad)) 5 ml FLUSH DAILY [facility] Last Admin: 10/18/16 08:44 Dose: 5 ml Metoprolol Tartrate (Lopressor Tab*) 75 mg PO BID [facility] Last Admin: 10/18/16 08:25 Dose: Not Given Omeprazole (Prilosec Cap*) 20 mg PO DAILY [facility] Last Admin: 10/18/16 08:46 Dose: 20 mg Ondansetron HCl (Zofran Inj*) 4 mg IV Q4H PRN PRN Reason: NAUSEA Last Admin: 10/18/16 08:42 Dose: 4 mg Oxycodone HCl (Oxycontin(*)) 10 mg PO BID [facility] Last Admin: 10/18/16 08:47 Dose: Not Given Oxycodone/Acetaminophen (Percocet 5/325 Tab*) 1 tab PO Q3H PRN PRN Reason: PAIN - MODERATE Last Admin: 10/17/16 08:48 Dose: 1 tab Senna (Senokot Tab*) 2 tab PO BEDTIME PRN PRN Reason: CONSTIPATION Sertraline HCl (Zoloft*) 75 mg PO DAILY [facility] Last Admin: 10/18/16 08:46 Dose: 75 mg Sodium Biphosphate/Sodium Phosphate (Fleet Enema*) 1 bottle [place] DAILY PRN PRN Reason: CONSTIPATION Last Admin: 10/18/16 01:09 Dose: 1 bottle Tamsulosin HCl (Flomax Cap*) 0.4 mg PO BEDTIME [facility] Last Admin: 10/17/16 20:18 Dose: 0.4 mg Trazodone HCl (Desyrel Tab*) 50 mg PO BEDTIME PRN PRN Reason: SLEEP AID Last Admin: 10/16/16 21:47 Dose: 50 mg Zolpidem Tartrate (Ambien Cr (Nf)) 6.25 mg PO BEDTIME PRN PRN Reason: SLEEP Last Admin: 10/16/16 21:47 Dose: 6.25 mg Objective: [] Vital Signs Temp Pulse Resp BP Pulse Ox 97.4 F 62 16 182/92 97 10/18/16 07:51 10/18/16 07:51 10/18/16 08:00 10/18/16 04:03 10/18/16 07:51 HEENT - Pale, mucosa moist. No JVD Pulm - better, no SOB at rest, in conversation CTA on exam, decreased sounds both bases +pain to palpation right chest, reproduction of pain RRR S1S2, 80s Mild distension, non tender good BS No edema, warm, good pulses. Assessment: []66 year old with history of esophageal cancer who has been on 5FU alone since 01/2016, new pericardial effusion second to progressive disease ARF. Continues to improve after emergency pericardial window. Plan: []1. Esophageal cancer. Progressive disease. Follow up with Dr. Sewell next week. 2. Pericardial effusion. Drain out and stable. Discussed with cardiology, check Echo before discharge. 3. Pneumothorax. Chest tube out today. 4. Pleural effusion are presumed malignant. At this time asymptomatic. Follow and can drain in future if needed. Hope to see improvement on chemotherapy. 5. Renal Function near baseline. Normal GFR 6. HTN. Discussed with cardiology and continue Metoprolol 75 mg po bid and Norvasc 5 mg po bid. 7. Afib. Intermittent a-fib on monitor, will anticoagulation Lovenox 100 mg sc bid. Will give first does today. 8. Chest pain. better, stop oxycontin 9. Will plan transfer to [facility] if ok with cardiology and surgery.
[2016-10-18] MEDS ORDERED: Enoxaparin(*) 100 MG/ML SYR SUBCUT SCH (11:00)
--- NOTE | 2016-10-18 13:43 | ECHO ---
Patient: DARIEL LEBLANC [facility] Rec#: [id number] : 1950 Date: 10/18/2016 Age: 66y Height: 193 cm / 76.0 in Weight: 117 kg / 257.9 lbs Sex: M BSA: 2.47 Room#: [facility] Admit Date#: 10/13/2016 Type: Inpatient Referring: Sebas Landis MD Reading: Antionette Virk MD Oxidized Finish Plater: Abigail Wall RN RDCS CC: STEFANIE REMY Transthoracic Echocardiogram Indication: Pericardial effusion S/P pericardial window BP: 182/92 HR: 68 Rhythm: NSR Findings History: Esophageal cancer with chemotherapy, HTN, pericardial effusion with tamponade 10/13/2016, S/P pericardial window. This is a LIMITED echo to reassess the pericardial effusion. The imaging was directed at the bedside by Dr. Virk. Technical Comments: The study quality is fair. The study is technically limited due to patient body habitus. Left Ventricle: There is normal left ventricular systolic function. The estimated ejection fraction is 55-60%. Right Ventricle: The right ventricular global systolic function is low normal. Pericardium: A trivial pericardial effusion is visualized.The echo-free pericardial rim measures 0.3cm anteriorly in the FEMI view and 0.3-0.4cm in the PSA view. A pericardial fat pad is visualized. A left pleural effusion is present. Conclusions The study is technically limited due to patient body habitus. There is normal left ventricular systolic function. The estimated ejection fraction is 55-60%. The right ventricular global systolic function is low normal. A trivial pericardial effusion is visualized.The echo-free pericardial rim measures 0.3cm anteriorly in the FEMI view and 0.3-0.4cm in the PSA view. No suggestion of tamponade.
--- NOTE | 2016-10-18 16:04 | DS ---
CC: Dr. Virk DISCHARGE SUMMARY: DATE OF ADMISSION: 10/13/16 DATE OF DISCHARGE: 10/18/16 DISCHARGE DIAGNOSES: 1. Pericardial effusion. 2. Pleural effusion. 3. Progressive esophageal cancer. 4. New atrial fibrillation. 5. Acute renal failure. HOSPITAL COURSE: The patient was admitted on 10/13/16 with acute shortness of breath for 3 days. Could not walk more than 10 feet without passing out. He had a CT scan that showed a new pericardial effusion as well as bilateral moderate pleural effusions. Echocardiogram showed tamponade. Blood work significant for acute renal failure, creatinine 5.38. On admission, he went for emergent pericardial window which was placed by Dr. Quintero. The surgery was successful, but complicated by a pneumothorax and he had a chest tube placed. He had immediate improvement in hemodynamics, improved renal output, and improved creatinine. He developed atrial fibrillation the night of the procedure and had marked hypertension for 48 hours after the window was placed. Over the past 5 days, he has had normalization of his hemodynamic parameters. His creatinine has dropped from 5.38 to 1.23. Breathing has improved markedly. CT scan does continue to show moderate bilateral effusions, but he is asymptomatic, walking without shortness of breath. He has no residual chest pain. On monitor, he does have intermittent episodes of AFib over the past 24 hours, 4 runs. He has had the pericardial drain removed and he will have the chest tube removed today. Case was discussed with Dr. Quintero and Dr. Virk. Plan will be at removal of the chest tube for a repeat echocardiogram. Assuming the echocardiogram is stable, he will be discharged home today. OTHER ISSUES DURING THE HOSPITALIZATION: Included chest pain thought to be mechanical from sleeping on his monitor. DISCHARGE MEDICATIONS: New medications will be: 1. Lovenox 100 mg subcu b.i.d. for atrial fibrillation. 2. Senna 2 tabs at bedtime for constipation. Modified medications: 1. Metoprolol, he will go from 100 daily to 75 mg b.i.d. 2. Amlodipine, he will go from 5 mg daily to 5 mg b.i.d. 3. Losartan held Home medications that will continue: 1. Allopurinol 100 mg daily. 2. Aspirin 81 mg a day. 3. Atorvastatin 20 mg a day. 4. Nexium 40 mg a day. 5. Vitamin tab 1 a day. 6. Trazodone 50 mg at bedtime. 7. Metformin 500 mg at bedtime. 8. Ondansetron 4 mg q.6. 9. Lyrica 50 mg daily. 10. Compazine 5 mg b.i.d. 11. Sertraline 75 mg daily. 12. Flomax 0.4 daily. 13. Tylenol 1000 p.r.n. 14. Ambien 6.25 extended release at bedtime. FOLLOWUP: Will be with Dr. Sewell next Friday and we will arrange followup with Cardiology as well. [id number]/[facility] #: [id number] [facility] SYSTEMLeighton
--- NOTE | 2016-10-19 05:18 | DS ---
DISCHARGE SUMMARY: * ADDENDUM: Case discussed with Cardiology, we will hold losartan on discharge. [id number]/[facility] #: [id number] PANFILO
--- NOTE | 2016-11-09 14:50 | ED ---
Aida Vincent SooYoung, scribed for Gabo Shukla MD on 10/13/16 at 1115 . Shortness of Breath - HPI Summary HPI Summary: A 66 y/o M presents to ED with c/o ongoing SOB onset past 5 days, worsening over past 3 days. Associated sx: DE JESUS; lightheaded; lethargy; near-syncopal episode yesterday; intermittent cough; mild sub-sternal CP. Denies: pedal edema. No recent weight gain. Pert PMHx: stage IV esophageal CA with dx last August ; most recent chemo was in September; kidney CA; neuropathy in extremities. Recent travel: returned from [facility] approx two weeks ago. Did not get his dose of daily meds this AM. Not on home O2. states he had low BP yesterday. PCP is Dr. Campbell, and sees Dr. Sewell, oncology. - History of Current Complaint Chief Complaint: EDShortnessOfBreath Time Seen by Provider: 10/13/16 10:33 Hx Obtained From: Patient, Family/Value Analysis Coordinator - Onset/Duration: Gradual Onset, Lasting Days, Still Present Timing: Constant Dyspnea At: Exertion - Allergy/Home Medications Allergies/Adverse Reactions: Allergies Allergy/AdvReac Type Severity Reaction Status Date / Time Colchicine Allergy Mild Rash Verified 10/13/16 10:39 Penicillin G Allergy Mild Rash Verified 10/13/16 10:39 Home Medications: Home Medications Pregabalin CAP(*) [Lyrica CAP(*)] 50 mg PO DAILY 10/13/16 [History Confirmed 12/22] Tylenol TAB* 1,000 mg PO BID 10/13/16 [History Confirmed 10/13/16] PMH/Surg Hx/FS Hx/Imm Hx Previously Healthy: No Endocrine/Hematology History: Reports: Hx Diabetes Denies: Hx Thyroid Disease Cardiovascular History: Reports: Hx Hypercholesterolemia, Hx Hypertension - ON MED, Other Cardiovascular Problems/Disorders - RECENTLY HOSPITALIZED FOR GI SYMPTOMS/NEG CARDIAC WORK UP Denies: Hx Angina, Hx Pacemaker/ICD, Hx Peripheral Vascular Disease Respiratory History: Reports: Hx Sleep Apnea Denies: Other Respiratory Problems/Disorders GI History: Reports: Hx Gastroesophageal Reflux Disease - ON MED History: Reports: Hx Kidney Stones, Hx Renal Disease, Other Problems/ Disorders - RIGHT NEPHRECTOMY Musculoskeletal History: Reports: Hx Arthritis - RIGHT WRIST, Other Musculoskeletal History - LEFT KNEE PROBLEM-HAS GOTTEN CORTISONE INJ Denies: Hx Osteoporosis Sensory History: Reports: Hx Contacts or Glasses - GLASSES, Hx Hearing Aid - DOES NOT WEAR DAILY Denies: Hx Cataracts, Hx Glaucoma Opthamlomology History: Reports: Hx Contacts or Glasses - GLASSES Denies: Hx Cataracts, Hx Glaucoma Neurological History: Reports: Hx Headaches - IN THE PAST Denies: Hx Seizures, Hx Transient Ischemic Attacks (TIA) Psychiatric History: Reports: Hx Depression - ON MED Denies: Hx Anxiety, Hx Panic Disorder - Cancer History Cancer Type, Location and Year: esophageal CA Hx Chemotherapy: Yes - 11/08/15 - Surgical History Surgery Procedure, Year, and Place: Appendix removed 1951,. Pilonidol cyst removed 1985,. RIGHT NEPHRECTOMY-2000. HERNIA REPAIR- 2008. BONE SPURS LEFT FOOT REMOVED -2013 Hx Anesthesia Reactions: No Infectious Disease History: No Infectious Disease History: Denies: Traveled Outside the [place] in Last 30 Days - Family History Known Family History: Positive: Diabetes - Social History Occupation: Retired Lives: With Family Alcohol Use: Rare Alcohol Amount: VERY RARE Hx Substance Use: No Substance Use Type: Reports: None Hx Tobacco Use: Yes Smoking Status (MU): Former Smoker Amount Used/How Often: 1 PACK A WEEK Length of Time of Smoking/Using Tobacco: 10 YEARS Have You Smoked in the Last Year: No Review of Systems Negative: Fever, Chills Negative: Erythema Negative: Sore Throat Positive: Chest Pain - mild, below sternum Positive: Shortness Of Breath - and dyspnea, Cough Negative: Abdominal Pain, Vomiting, Nausea Negative: dysuria, hematuria Negative: Myalgia, Edema Negative: Rash Neurological: Other - pos: lightheaded; neg: dizziness Positive: Weakness - lethargy, Syncope - near syncope All Other Systems Reviewed And Are Negative: Yes Physical Exam - Summary Physical Exam Summary: Constitutional: Well-developed, Well-nourished, Alert. (-) Distressed Skin: Warm, Dry HENT: Normocephalic; Atraumatic Eyes: Conjunctiva normal Neck: Musculoskeletal ROM normal neck. (-) JVD, (-) Stridor, (-) Tracheal deviation Cardio: Rhythm regular, rate normal, Heart sounds normal; Intact distal pulses; The pedal pulses are 2+ and symmetric. Radial pulses are 2+ and symmetric. (-) Murmur Pulmonary/Chest wall: (-) Wheezes, (-) Rales; SOB ON ROOM AIR. Abd: Soft, (-) Tenderness, (-) Distension, (-) Guarding, (-) Rebound Musculoskeletal: (-) Edema Lymph: (-) Cervical adenopathy Neuro: Alert, Oriented x3 Psych: Mood and affect Normal Triage Information Reviewed: Yes Vital Signs On Initial Exam: Initial Vitals Temp Pulse Resp BP Pulse Ox 97.8 F 94 22 121/70 95 10/13/16 10:26 10/13/16 10:26 10/13/16 10:26 10/13/16 10:26 10/13/16 10:26 Vital Signs Reviewed: Yes - [place] Coma Scale Coma Scale Total: 15 Diagnostics - Vital Signs Vital Signs Temp Pulse Resp BP Pulse Ox 10/13/16 10:36 95 10/13/16 10:33 18 10/13/16 10:31 97.8 F 95 18 121/66 94 10/13/16 10:30 95 17 121/66 95 10/13/16 10:28 93 92 10/13/16 10:27 121/70 10/13/16 10:26 97.8 F 94 22 121/70 95 - Laboratory Lab Results: Lab Results 10/13/16 10/13/16 10/13/16 Range/Units 11:10 11:10 11:10 WBC 12.5 H (3.5-10.8) 10^3/ul RBC 3.75 L (4.0-5.4) 10^6/ul Hgb 11.2 L (14.0-18.0) g/dl Hct 35 L (42-52) % MCV 92 (80-94) fL MCH 30 (27-31) pg MCHC 32 (31-36) g/dl RDW 15 (10.5-15) % Plt Count 217 (150-450) 10^3/ul MPV 10 (7.4-10.4) um3 Neut % (Auto) 78.8 (38-83) % Lymph % (Auto) 9.7 L (25-47) % [place] % (Auto) 10.3 H (1-9) % Eos % (Auto) 0.7 (0-6) % Baso % (Auto) 0.5 (0-2) % Absolute Neuts (auto) 9.9 H (1.5-7.7) 10^3/ul Absolute Lymphs (auto) 1.2 (1.0-4.8) 10^3/ul Absolute Monos (auto) 1.3 H (0-0.8) 10^3/ul Absolute Eos (auto) 0.1 (0-0.6) 10^3/ul Absolute Basos (auto) 0.1 (0-0.2) 10^3/ul Absolute Nucleated RBC 0.01 10^3/ul Nucleated RBC % 0.1 INR (Anticoag Therapy) 1.14 H (0.89-1.11) APTT 29.3 (26.0-36.3) seconds D-Dimer, Quantitative 958 H (Less Than 230) ng/mL Sodium 131 L (133-145) mmol/L Potassium 6.0 H (3.5-5.0) mmol/L Chloride 99 L (101-111) mmol/L Carbon Dioxide 20 L (22-32) mmol/L Anion Gap 12 H (2-11) mmol/L BUN 60 H (6-24) mg/dL Creatinine 5.21 H (0.67-1.17) mg/dL Est GFR ( Amer) 14.2 (>60) Est GFR (Non-Af Amer) 11.1 (>60) BUN/Creatinine Ratio 11.5 (8-20) Glucose 144 H (70-100) mg/dL Lactic Acid (0.5-2.0) mmol/L Calcium 9.1 (8.6-10.3) mg/dL Total Bilirubin 1.10 H (0.2-1.0) mg/dL AST 18 (13-39) U/L ALT 20 (7-52) U/L Alkaline Phosphatase 88 (34-104) U/L Troponin I 0.01 (<0.04) ng/mL B-Natriuretic Peptide ( - 100) pg/mL Total Protein 6.6 (6.4-8.9) g/dL Albumin 3.8 (3.2-5.2) g/dL Globulin 2.8 (2-4) g/dL Albumin/Globulin Ratio 1.4 (1-3) Urine Color Urine Appearance Urine pH (5-9) Ur Specific [place] (1.010-1.030) Urine Protein (Negative) Urine Ketones (Negative) Urine Blood (Negative) Urine Nitrate (Negative) Urine Bilirubin (Negative) Urine Urobilinogen (Negative) Ur Leukocyte Esterase (Negative) Urine Glucose (Negative) 10/13/16 10/13/16 10/13/16 Range/Units 11:10 11:10 12:25 WBC (3.5-10.8) 10^3/ul RBC (4.0-5.4) 10^6/ul Hgb (14.0-18.0) g/dl Hct (42-52) % MCV (80-94) fL MCH (27-31) pg MCHC (31-36) g/dl RDW (10.5-15) % Plt Count (150-450) 10^3/ul MPV (7.4-10.4) um3 Neut % (Auto) (38-83) % Lymph % (Auto) (25-47) % [place] % (Auto) (1-9) % Eos % (Auto) (0-6) % Baso % (Auto) (0-2) % Absolute Neuts (auto) (1.5-7.7) 10^3/ul Absolute Lymphs (auto) (1.0-4.8) 10^3/ul Absolute Monos (auto) (0-0.8) 10^3/ul Absolute Eos (auto) (0-0.6) 10^3/ul Absolute Basos (auto) (0-0.2) 10^3/ul Absolute Nucleated RBC 10^3/ul Nucleated RBC % INR (Anticoag Therapy) (0.89-1.11) APTT (26.0-36.3) seconds D-Dimer, Quantitative (Less Than 230) ng/mL Sodium (133-145) mmol/L Potassium (3.5-5.0) mmol/L Chloride (101-111) mmol/L Carbon Dioxide (22-32) mmol/L Anion Gap (2-11) mmol/L BUN (6-24) mg/dL Creatinine (0.67-1.17) mg/dL Est GFR ( Amer) (>60) Est GFR (Non-Af Amer) (>60) BUN/Creatinine Ratio (8-20) Glucose (70-100) mg/dL Lactic Acid 2.3 H* (0.5-2.0) mmol/L Calcium (8.6-10.3) mg/dL Total Bilirubin (0.2-1.0) mg/dL AST (13-39) U/L ALT (7-52) U/L Alkaline Phosphatase (34-104) U/L Troponin I (<0.04) ng/mL B-Natriuretic Peptide 113 H ( - 100) pg/mL Total Protein (6.4-8.9) g/dL Albumin (3.2-5.2) g/dL Globulin (2-4) g/dL Albumin/Globulin Ratio (1-3) Urine Color Emy Urine Appearance Cloudy Urine pH 5.0 (5-9) Ur Specific [place] 1.024 (1.010-1.030) Urine Protein 2+(100 mg/dl) H (Negative) Urine Ketones Negative (Negative) Urine Blood Negative (Negative) Urine Nitrate Negative (Negative) Urine Bilirubin Negative (Negative) Urine Urobilinogen Negative (Negative) Ur Leukocyte Esterase Trace H (Negative) Urine Glucose Negative (Negative) Result Diagrams: 10/18/16 05:27 10/18/16 05:27 Lab Statement: Any lab studies that have been ordered have been reviewed, and results considered in the medical decision making process. - Radiology CXR Xray Interpretation: No Acute Changes - IMPRESSION: No active cardiopulmonary dz Radiology Interpretation Completed By: Radiologist Re-Evaluation - Re-Evaluation 1 Re-Evaluation Time: 11:54 Comment: Discussing results with pt and . Course/Dx - Course Course Of Treatment: Pt is a 66 y/o M presenting with ongoing SOB onset past 5 days, worsening over past 3 days. Associated sx: DE JESUS; lightheaded; lethargy; near-syncopal episode yesterday; intermittent cough; mild sub-sternal CP. Denies : pedal edema. 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 Recent travel: returned from [place] approx two weeks ago. Did not get his dose of daily meds this AM. Not on home O2. Sees Dr. Sewell, oncology. At bedside, room sat dropped to 89%. Lactic acid is 2.3. BNP is 113. Trop is 0.01. CXR is nml. UA results show 2+ protein and trace leukocyte esterase. Ddimer is 958. - Diagnoses Provider Diagnoses: Acute renal failure, Pulmonary embolism, Hypoxemia - Physician Notifications Discussed Care of Patient With: Stevo Palomares - radiology Time Discussed With Above Provider: 12:10 Instructed by Provider To: Other - will call in nuclear tech for scan - Critical Care Time Critical Care Time: 30-74 min - 60 mins Discharge - Discharge Plan Condition: Good Disposition: ADMITTED TO [facility] Consult Consult: 1210: Spoke to Dr. Sewell, oncology Recommends admission, heparin. 1225: Spoke to Dr. Rodriguez, hospitalist Will admit pt. 1245: Spoke to Dr. Morris, hospitalist Agrees with giving pt heparin. The documentation as recorded by the Aida sánchez SooYoung accurately reflects the service I personally performed and the decisions made by me, Gabo Shukla MD.
--- NOTE | 2016-12-14 00:37 | OP ---
CC: [facility] OPERATIVE REPORT: DATE OF OPERATION: 10/13/16 DATE OF : 46 SURGEON: Yeni Quintero MD INSURANCE SPECIAL AGENT: There was no licensed sales assistant for this case. PRE-OP DIAGNOSIS: Pericardial effusion. POST-OP DIAGNOSIS: Pericardial effusion. OPERATIVE PROCEDURE: Pericardial window. INDICATIONS: Mr. Lowe is a 66-year-old gentleman with a history of esophageal cancer for which camryn junior has been receiving chemotherapy. He presented to the hospital with shortness of breath and was fo und to have pericardial effusion that was causing tamponade. He was therefore prepared for surgery. DESCRIPTION OF PROCEDURE: He was brought to the operating room, placed on the OR table in the supin e and given IV sedation. The chest was prepped and draped in the usual sterile fashion. After infi ltrating with local anesthetic, an incision was made over the subxiphoid process. Subcutaneous tiss ue was divided with electrocautery down to the level of the fascia overlying the subxiphoid process. This was cauterized so as to expose the cartilaginous structure, which was then amputated and alden d off as a specimen. Combination of blunt and sharp dissection was used to expose the pericardium. It was grasped with clamp and a portion of it was excised and sent to the lab with some difficulty. A ERNESTINE drain was inserted into the pericardial space and a large amount of fluid was evacuated some of which was sent for cytologic evaluation. Then, the ERNESTINE drain was brought out through the chest wa ll anteriorly through the small stab wound and secured to the chest wall with 3-0 Surgipro. Closure of the incision was then accomplished over the ERNESTINE drain using absorbable suture in the fascial and subcutaneous layers and 4-0 Surgipro in a subcuticular fashion in the skin. Steri-Strips and a dry sterile dressing were applied. All sponge and instrument counts were correct. The patient tolerate d the procedure well and was transferred to Recovery in a guarded condition. [id number]/[facility] #: [id number]
== END 2016-10-18 13:50 | disposition home or self-care (01) | DRG 271 ==
LOC: ED 10:16 → MED 12:40 → ICU 14:47 → MEDTELE 10-17 14:54
PROVIDERS: ADMIT Internal Medicine; ATTEND Internal Medicine Hematology & Oncology
PROC: 0W9D00Z Drainage of Pericardial Cavity with Drainage Device, Open Approach (ICD-10-PCS; 2016-10-13)
PROC: 0WP9X0Z Removal of Drainage Device from Right Pleural Cavity, External Approach (ICD-10-PCS; 2016-10-13)
PROC: 0W9930Z Drainage of Right Pleural Cavity with Drainage Device, Percutaneous Approach (ICD-10-PCS; principal; 2016-10-14)
PROC: 5A2204Z Restoration of Cardiac Rhythm, Single (ICD-10-PCS; 2016-10-15)
DX: I31.3 Pericardial effusion (noninflammatory) (principal); N17.9 Acute kidney failure, unspecified; I31.4 Cardiac tamponade; C15.9 Malignant neoplasm of esophagus, unspecified; J90 Pleural effusion, not elsewhere classified; I10 Essential (primary) hypertension; K21.9 Gastro-esophageal reflux disease without esophagitis; F32.9 Major depressive disorder, single episode, unspecified; J95.811 Postprocedural pneumothorax; M41.9 Scoliosis, unspecified; R45.84 Anhedonia; E11.9 Type 2 diabetes mellitus without complications; M10.9 Gout, unspecified; I48.91 Unspecified atrial fibrillation; E66.9 Obesity, unspecified; N40.0 Benign prostatic hyperplasia without lower urinary tract symptoms; E78.5 Hyperlipidemia, unspecified; Z88.1 Allergy status to other antibiotic agents; Z88.0 Allergy status to penicillin; Z88.8 Allergy status to other drugs, medicaments and biological substances; Z87.891 Personal history of nicotine dependence; Z85.528 Personal history of other malignant neoplasm of kidney; Z82.49 Family history of ischemic heart disease and other diseases of the circulatory system; Z83.3 Family history of diabetes mellitus; Z80.9 Family history of malignant neoplasm, unspecified; Z87.442 Personal history of urinary calculi; Z79.82 Long term (current) use of aspirin; Z79.84 Long term (current) use of oral hypoglycemic drugs; Z68.31 Body mass index [BMI] 31.0-31.9, adult
CPT/HCPCS: 36415; 71010; 71250; 74176; 76775; 78582; 80048; 80053; 81003; 81015; 82570; 83605; 83735; 83880; 84133; 84300; 84484; 85025; 85379; 85610; 85730; 87040; 87070; 87086; 87205; 87641; 88112; 88305; 88342; 93005; 93306; 93308; 94640; 94760; 99233; 99239; A9270-GY; A9540; A9558; J0360; J1100; J1170; J1642; J1644; J1650; J2001; J2060; J2250; J2310; J2405; J2704; J3010

== ENCOUNTER 2016-12-28 13:16 | Emergency (ER) | payer MEDICARE, OTHER ==
[2016-12-28 14:41] LABS: Hematocrit 32 % (42-52); Hemoglobin 10.9 g/dl (14.0-18.0); Mean Corpuscular HGB Conc 34 g/dl (31-36); Mean Corpuscular Hemoglobin 29 pg (27-31); Mean Corpuscular Volume 84 fL (80-94); Mean Platelet Volume 9 um3 (7.4-10.4); Red Cell Distribution Width 16 % (10.5-15); White Blood Count 7.8 10^3/ul (3.5-10.8)
[2016-12-28 14:57] LABS: Albumin 3.5 g/dL (3.2-5.2); BUN/Creatinine Ratio 15.7 (8-20); C Reactive Protein 73.78 mg/L (< 5.00); Calcium 9.6 mg/dL (8.6-10.3); EGFR African American 81.3 (>60); EGFR Non-African American 63.2 (>60); Globulin 2.8 g/dL (2-4); Magnesium 1.5 mg/dL (1.9-2.7); Potassium 4.1 mmol/L (3.5-5.0); Total Bilirubin 0.5 mg/dL (0.2-1.0); Total Protein 6.3 g/dL (6.4-8.9); Troponin I 0.01 ng/mL (<0.04)
[2016-12-28 15:16] LABS: TSH (Thyroid Stimulating Horm) 5.76 mcIU/mL (0.34-5.60)
--- NOTE | 2016-12-28 15:24 | RAD ---
Indication: 2 days general weakness. Hypertension. History of esophageal carcinoma. Comparison: December 19, 2016 CT. Technique: Sitting AP and lateral chest views. Report: Tip of RIGHT chest port at level of superior vena cava directed central. Small dependent LEFT pleural effusion with proportional basilar atelectasis without significant change. Clear RIGHT pleural space. No new pulmonary consolidation. Negative for pneumothorax. Negative for cardiomegaly. Unremarkable central pulmonary vasculature. Prominent RIGHT paratracheal soft tissue contour corresponds with lymphadenopathy on CT. IMPRESSION: No significant change in small dependent LEFT pleural effusion with proportional atelectasis compared with the December 19, 2016 CT. Mediastinal lymphadenopathy as previously documented.
[2016-12-28 17:55] LABS: Urine Bacteria Absent (Absent); Urine Bilirubin Negative (Negative); Urine Glucose Negative (Negative); Urine Nitrite Negative (Negative)
[2016-12-28 18:26] VITALS: BP 137/69
--- NOTE | 2016-12-28 21:57 | ED ---
Daphne Vincent Emily, scribed for Erick Lara MD on 12/28/16 at 1414 . Complex/Multi-Sys Presentation - HPI Summary HPI Summary: This patient is a 66 year old M [facility] accompanied by with a chief complaint of weakness that began this morning. reports pt feeling fine last night. The patient rates the pain 0/10 in severity. Symptoms aggravated by nothing. Symptoms alleviated by nothing. Patient denies urinary or bowel symptoms. reports patient having upper back tightness and headaches. reports pt having 02 sat of 92%. reports pt having trouble walking upon waking this morning. - History Of Current Complaint Chief Complaint: EDWeakness Time Seen by Provider: 12/28/16 13:30 Hx Obtained From: Patient, Family/Barrel Lapper Onset/Duration: Sudden Onset, Lasting Hours Timing: Constant, Hours Severity Currently: None Associated Signs And Symptoms: Positive: Headache, Other - Back tightness - Allergies/Home Medications Allergies/Adverse Reactions: Allergies Allergy/AdvReac Type Severity Reaction Status Date / Time Colchicine Allergy Mild Rash Verified 10/13/16 10:39 Penicillin G Allergy Mild Rash Verified 10/13/16 10:39 PMH/Surg Hx/FS Hx/Imm Hx Previously Healthy: No Endocrine/Hematology History: Reports: Hx Diabetes Denies: Hx Thyroid Disease Cardiovascular History: Reports: Hx Hypercholesterolemia, Hx Hypertension - ON MED, Other Cardiovascular Problems/Disorders - RECENTLY HOSPITALIZED FOR GI SYMPTOMS/NEG CARDIAC WORK UP Denies: Hx Angina, Hx Pacemaker/ICD, Hx Peripheral Vascular Disease Respiratory History: Reports: Hx Sleep Apnea Denies: Hx Asthma, Hx Chronic Obstructive Pulmonary Disease (COPD), Other Respiratory Problems/Disorders GI History: Reports: Hx Gastroesophageal Reflux Disease - ON MED History: Reports: Hx Kidney Stones, Hx Renal Disease, Other Problems/ Disorders - RIGHT NEPHRECTOMY Musculoskeletal History: Reports: Other Musculoskeletal History - LEFT KNEE PROBLEM-HAS GOTTEN CORTISONE INJ Denies: Hx Arthritis, Hx Osteoporosis Sensory History: Reports: Hx Contacts or Glasses, Hx Hearing Aid - states does not use all the time Denies: Hx Cataracts, Hx Glaucoma Opthamlomology History: Reports: Hx Contacts or Glasses Denies: Hx Cataracts, Hx Glaucoma Neurological History: Denies: Hx Headaches, Hx Seizures, Hx Transient Ischemic Attacks (TIA) Psychiatric History: Reports: Hx Depression - ON MED Denies: Hx Anxiety, Hx Panic Disorder - Cancer History Cancer Type, Location and Year: esophageal CA Hx Chemotherapy: Yes - 09/30 lat chemo treatment - Surgical History Surgery Procedure, Year, and Place: Appendix removed 1951,. Pilonidol cyst removed 1985,. RIGHT NEPHRECTOMY-2000. HERNIA REPAIR- 2008. BONE SPURS LEFT FOOT REMOVED -2013 Hx Anesthesia Reactions: No Infectious Disease History: Yes Infectious Disease History: Denies: Traveled Outside the [place] in Last 30 Days - Family History Known Family History: Positive: Diabetes - Social History Alcohol Use: None Alcohol Amount: VERY RARE Hx Substance Use: No Substance Use Type: Reports: None Hx Tobacco Use: No Smoking Status (MU): Former Smoker Amount Used/How Often: 1 PACK A WEEK Length of Time of Smoking/Using Tobacco: 10 YEARS Have You Smoked in the Last Year: No Review of Systems Gastrointestinal: Negative Positive: no symptoms reported Positive: Other - Back tightness Positive: Headache, Weakness All Other Systems Reviewed And Are Negative: Yes Physical Exam Triage Information Reviewed: Yes Vital Signs On Initial Exam: Initial Vitals Temp Pulse Resp BP Pulse Ox 99.0 F 79 14 146/70 95 12/28/16 13:18 12/28/16 13:18 12/28/16 13:18 12/28/16 13:18 12/28/16 13:18 Vital Signs Reviewed: Yes Appearance: Positive: Well-Appearing, No Pain Distress Skin: Positive: Warm, Skin Color Reflects Adequate Perfusion, Diaphoretic Head/Face: Positive: Normal Head/Face Inspection Eyes: Positive: Normal ENT: Positive: Normal ENT inspection Neck: Positive: Supple, Nontender Respiratory/Lung Sounds: Positive: Other - Diffuse decreased breath sounds and crackles sparsely Cardiovascular: Positive: Other - Soft systolic ejection murmur Abdomen Description: Positive: Nontender, Soft Bowel Sounds: Positive: Present Musculoskeletal: Positive: Normal Neurological: Positive: Normal Psychiatric: Positive: Affect/Mood Appropriate - Sherif Coma Scale Coma Scale Total: 15 Diagnostics - Vital Signs Vital Signs Temp Pulse Resp BP Pulse Ox 12/28/16 13:18 99.0 F 79 14 146/70 95 - Laboratory Lab Results: Lab Results 12/28/16 12/28/16 12/28/16 Range/Units 14:14 14:14 14:14 WBC 7.8 (3.5-10.8) 10^3/ul RBC 3.80 L (4.0-5.4) 10^6/ul Hgb 10.9 L (14.0-18.0) g/dl Hct 32 L (42-52) % MCV 84 (80-94) fL MCH 29 (27-31) pg MCHC 34 (31-36) g/dl RDW 16 H (10.5-15) % Plt Count 220 (150-450) 10^3/ul MPV 9 (7.4-10.4) um3 Neut % (Auto) 71.9 (38-83) % Lymph % (Auto) 12.3 L (25-47) % Eddy % (Auto) 13.4 H (1-9) % Eos % (Auto) 1.4 (0-6) % Baso % (Auto) 1.0 (0-2) % Absolute Neuts (auto) 5.6 (1.5-7.7) 10^3/ul Absolute Lymphs (auto) 1.0 (1.0-4.8) 10^3/ul Absolute Monos (auto) 1.1 H (0-0.8) 10^3/ul Absolute Eos (auto) 0.1 (0-0.6) 10^3/ul Absolute Basos (auto) 0.1 (0-0.2) 10^3/ul Absolute Nucleated RBC 0 10^3/ul Nucleated RBC % 0.1 INR (Anticoag Therapy) 1.37 H (0.89-1.11) Sodium 136 (133-145) mmol/L Potassium 4.1 (3.5-5.0) mmol/L Chloride 100 L (101-111) mmol/L Carbon Dioxide 25 (22-32) mmol/L Anion Gap 11 (2-11) mmol/L BUN 18 (6-24) mg/dL Creatinine 1.15 (0.67-1.17) mg/dL Est GFR ( Amer) 81.3 (>60) Est GFR (Non-Af Amer) 63.2 (>60) BUN/Creatinine Ratio 15.7 (8-20) Glucose 115 H (70-100) mg/dL Lactic Acid (0.5-2.0) mmol/L Calcium 9.6 (8.6-10.3) mg/dL Magnesium 1.5 L (1.9-2.7) mg/dL Total Bilirubin 0.50 (0.2-1.0) mg/dL AST 21 (13-39) U/L ALT 13 (7-52) U/L Alkaline Phosphatase 162 H (34-104) U/L Troponin I 0.01 (<0.04) ng/mL C-Reactive Protein 73.78 H (< 5.00) mg/L B-Natriuretic Peptide ( - 100) pg/mL Total Protein 6.3 L (6.4-8.9) g/dL Albumin 3.5 (3.2-5.2) g/dL Globulin 2.8 (2-4) g/dL Albumin/Globulin Ratio 1.3 (1-3) TSH 5.76 H (0.34-5.60) mcIU/mL Urine Color Urine Appearance Urine pH (5-9) Ur Specific [place] (1.010-1.030) Urine Protein (Negative) Urine Ketones (Negative) Urine Blood (Negative) Urine Nitrate (Negative) Urine Bilirubin (Negative) Urine Urobilinogen (Negative) Ur Leukocyte Esterase (Negative) Urine WBC (Auto) (Absent) Urine RBC (Auto) (Absent) Ur Squamous Epith Cells (Absent) Urine Bacteria (Absent) Urine Glucose (Negative) 12/28/16 12/28/16 12/28/16 Range/Units 14:14 14:14 16:09 WBC (3.5-10.8) 10^3/ul RBC (4.0-5.4) 10^6/ul Hgb (14.0-18.0) g/dl Hct (42-52) % MCV (80-94) fL MCH (27-31) pg MCHC (31-36) g/dl RDW (10.5-15) % Plt Count (150-450) 10^3/ul MPV (7.4-10.4) um3 Neut % (Auto) (38-83) % Lymph % (Auto) (25-47) % Eddy % (Auto) (1-9) % Eos % (Auto) (0-6) % Baso % (Auto) (0-2) % Absolute Neuts (auto) (1.5-7.7) 10^3/ul Absolute Lymphs (auto) (1.0-4.8) 10^3/ul Absolute Monos (auto) (0-0.8) 10^3/ul Absolute Eos (auto) (0-0.6) 10^3/ul Absolute Basos (auto) (0-0.2) 10^3/ul Absolute Nucleated RBC 10^3/ul Nucleated RBC % INR (Anticoag Therapy) (0.89-1.11) Sodium (133-145) mmol/L Potassium (3.5-5.0) mmol/L Chloride (101-111) mmol/L Carbon Dioxide (22-32) mmol/L Anion Gap (2-11) mmol/L BUN (6-24) mg/dL Creatinine (0.67-1.17) mg/dL Est GFR ( Amer) (>60) Est GFR (Non-Af Amer) (>60) BUN/Creatinine Ratio (8-20) Glucose (70-100) mg/dL Lactic Acid 2.3 H* (0.5-2.0) mmol/L Calcium (8.6-10.3) mg/dL Magnesium (1.9-2.7) mg/dL Total Bilirubin (0.2-1.0) mg/dL AST (13-39) U/L ALT (7-52) U/L Alkaline Phosphatase (34-104) U/L Troponin I (<0.04) ng/mL C-Reactive Protein (< 5.00) mg/L B-Natriuretic Peptide 306 H ( - 100) pg/mL Total Protein (6.4-8.9) g/dL Albumin (3.2-5.2) g/dL Globulin (2-4) g/dL Albumin/Globulin Ratio (1-3) TSH (0.34-5.60) mcIU/mL Urine Color Yellow Urine Appearance Clear Urine pH 6.0 (5-9) Ur Specific [place] 1.019 (1.010-1.030) Urine Protein 2+(100 mg/dl) H (Negative) Urine Ketones Negative (Negative) Urine Blood Negative (Negative) Urine Nitrate Negative (Negative) Urine Bilirubin Negative (Negative) Urine Urobilinogen Negative (Negative) Ur Leukocyte Esterase Negative (Negative) Urine WBC (Auto) Trace(0-5/hpf) (Absent) Urine RBC (Auto) Absent (Absent) Ur Squamous Epith Cells Present H (Absent) Urine Bacteria Absent (Absent) Urine Glucose Negative (Negative) Result Diagrams: 12/28/16 14:14 12/28/16 14:14 Lab Statement: Any lab studies that have been ordered have been reviewed, and results considered in the medical decision making process. - Radiology CXR Radiology Interpretation Completed By: Radiologist - CXR reveals read by radiologist reveals no significant change in small dependent LEFT pleural effusion with proportional atelectasis compared with the December 19, 2016 CT. Mediastinal lymphadenopathy as previously documented. ED physician has reviewed this radiology report and agrees. - EKG 1645 Cardiac Rate: NL - 79 BPM EKG Rhythm: Sinus Rhythm EKG Interpretation: Diffuse non-specific T wave flattening inversion Complex Multi-Symp Course/Dx Course Of Treatment: Mr. Lowe was brought in by his with a concern for increased weakness since early this AM. She had given him an ativan for back pain which worked apparently and thought that that could be the weakness but wasn't sure. He was W/U'd here and there was no sign of infection or other acute illness. His ecg showed some t-wave inversions diffusely however, we have no old ones since his pericardial window was established. His trop is negative many hours after the start of this at any rate. He want to go home and I agree. He is feeling much better at the time of D/C. - Diagnoses Provider Diagnoses: Weakness Discharge - Discharge Plan Condition: Stable Disposition: HOME Patient Education Materials: Weakness (ED) Referrals: Ady Sewell MD [Primary Care Provider] - Sebas Landis MD [Medical Doctor] - 1 Week Additional Instructions: RETURN TO THE EMERGENCY DEPARTMENT FOR CHANGING OR WORSENING SYMPTOMS. The documentation as recorded by the Daphne sánchez Emily accurately reflects the service I personally performed and the decisions made by me, Erick Lara MD.
== END 2016-12-28 18:29 | disposition home or self-care (01) ==
LOC: ED 13:16
DX: R53.1 Weakness (principal); R51 Headache; Z87.891 Personal history of nicotine dependence; E11.9 Type 2 diabetes mellitus without complications
CPT/HCPCS: 36415; 71020; 80053; 81003; 81015; 83605; 83735; 83880; 84443; 84484; 85025; 85610; 86140; 87040; 93005; 99283

== ENCOUNTER 2017-01-30 10:48 | Inpatient (IN) | payer MEDICARE, OTHER ==
[2017-01-30] MEDS ORDERED: LORazepam TAB(*) 0.5 MG PO PRN (10:54)
[2017-01-30] MEDS ORDERED: LORazepam INJ* 2 MG/ML 1 ML VIAL IV PUSH PRN ×2 (10:54→16:10)
[2017-01-30] MEDS ORDERED: Ondansetron INJ* 2 MG/ML VIAL IV PRN (11:14)
[2017-01-30] MEDS ORDERED: PROCHLORPERAZINE INJ 5 MG/ML 2 ML VIAL IV PRN (11:14)
[2017-01-30] MEDS: Atropine 1% (ORAL/SL)* 15 ML BTL SL PRN ×4 (13:01→22:59)
[2017-01-30] MEDS: Morphine ORAL CONCENTRATE* 5 MG/0.25 ML ORAL.SYRIN SL PRN ×7 (13:06→22:45)
[2017-01-30] MEDS ORDERED: fentaNYL PATCH 75 MCG/HR* 75 MCG TRANSDERM SCH (14:00)
[2017-01-30 14:20] VITALS: BP 0/0
[2017-01-30] MEDS ORDERED: Haloperidol INJ IV/IM* 5 MG/ML AMP IV SLOW PU PRN ×2 (16:10→17:07)
[2017-01-30] MEDS: LORazepam INJ* 2 MG/ML 1 ML VIAL IV PUSH PRN ×5 (17:32→22:45)
[2017-01-30] MEDS: fentaNYL Patch Check Q Shift 1 NOTE SCH (18:46)
[2017-01-30] MEDS ORDERED: Enoxaparin(*) 100 MG/ML SYR SUBCUT SCH (21:00)
[2017-01-31] MEDS: LORazepam INJ* 2 MG/ML 1 ML VIAL IV PUSH PRN ×4 (00:18→06:20)
[2017-01-31] MEDS: Morphine ORAL CONCENTRATE* 5 MG/0.25 ML ORAL.SYRIN SL PRN ×5 (00:18→07:20)
[2017-01-31] MEDS: Atropine 1% (ORAL/SL)* 15 ML BTL SL PRN ×4 (00:59→07:21)
[2017-01-31] MEDS: fentaNYL Patch Check Q Shift 1 NOTE SCH ×2 (06:42→09:47)
== END 2017-01-31 09:35 | disposition expired | DRG 951 ==
LOC: MED 12:17
PROVIDERS: ADMIT Internal Medicine Hematology & Oncology; ATTEND Internal Medicine Hematology & Oncology
DX: Z51.5 Encounter for palliative care (principal); C15.9 Malignant neoplasm of esophagus, unspecified; E11.9 Type 2 diabetes mellitus without complications; K21.9 Gastro-esophageal reflux disease without esophagitis; E66.9 Obesity, unspecified; Z68.1 Body mass index [BMI] 19.9 or less, adult; Z88.8 Allergy status to other drugs, medicaments and biological substances; Z88.0 Allergy status to penicillin; M10.9 Gout, unspecified; E78.5 Hyperlipidemia, unspecified; I10 Essential (primary) hypertension; Z90.5 Acquired absence of kidney; Z66 Do not resuscitate; Z85.528 Personal history of other malignant neoplasm of kidney
CPT/HCPCS: 36415; 36591; 80053; 84443; 85025; 96360; 99213; A9270-GY; G0463; J1200; J1642; J2060; J9308